=== PATIENT | female | born 1955 | race Caucasian/White ===

== ENCOUNTER 2017-11-07 21:39 | Emergency (ER) | payer MEDICARE, MEDICAID ==
[2017-11-07] MEDS ORDERED: Acetaminophen/HYDROcodone 325-5 MG Tab PO ONE (21:50)
--- NOTE | 2017-11-07 22:03 | EDM.PDOC ---
ED HPI GENERAL MEDICAL PROBLEM - General Stated Complaint: PAIN LT FOOT Time Seen by Provider: 11/07/17 21:39 Source of Information: Reports: Patient, Family History Limitations: Reports: Physical Impairment - History of Present Illness INITIAL COMMENTS - FREE TEXT/NARRATIVE: 62 y.o.w.f came with her partner to the ed due to right ankle pain. Pt had right ankle surgery on 09/08/2017, no new trauma, pt was seen at [facility] a few weeks ago for same. Pt has waling boot in place C/O ankle pain medial aspect. Pt is on a wheelchair most of the day. BP 127/78 pulse 90 temp 36.6 RR 20 Pulse ox 95% on RA. Onset: Today Onset Date: 11/04/17 Onset Time: 07:00 Duration: Day(s):, Intermittent Location: Reports: Lower Extremity, Right Quality: Reports: Ache, Burning, Same as Previous Episode Severity: Mild Improves with: Reports: Rest Worsens with: Reports: Movement Context: Reports: Other (s/p r ankle surgery) Associated Symptoms: Reports: No Other Symptoms Right Lower Leg Pain Score (Numeric/FACES): 9 - Related Data Allergies Allergy/AdvReac Type Severity Reaction Status Date / Time tetanus and diphtheria Allergy Hives Verified 08/29/17 18:21 toxoids [tetanus & diphtheria toxoids] Home Meds: Home Meds Amitriptyline [Elavil] 50 mg PO BEDTIME 05/04/15 [History] Clopidogrel [Plavix] 75 mg PO DAILY 05/04/15 [History] Potassium Chloride [Klor-Con M20] 10 meq PO BID 05/04/15 [History] fentaNYL [Fentanyl] 75 mcg TD Q72H 05/04/15 [History] levETIRAcetam [Keppra] 1,000 mg PO BID 05/04/15 [History] rOPINIRole [Requip] 2 mg PO BEDTIME 05/04/15 [History] Celecoxib [CeleBREX] 200 mg PO DAILY 05/30/15 [History] FLUoxetine [PROzac] 20 mg PO DAILY 05/30/15 [History] Acetaminophen [Tylenol] 975 mg PO ASDIRECTED PRN #60 06/03/15 [Rx] Furosemide [Lasix] 40 mg PO DAILY tablet 06/03/15 [Rx] Meclizine [Antivert] 25 mg PO TID PRN #30 06/07/15 [Rx] Terbinafine [LamISIL AT 1% Crm] 0 gm TOP BID tube 06/13/15 [Rx] Acetaminophen [Tylenol Arthritis] 1,300 mg PO BID 08/30/17 [History] Allopurinol [Zyloprim] 300 mg PO DAILY 08/30/17 [History] FLUoxetine HCl [Fluoxetine HCl] 40 mg PO DAILY 08/30/17 [History] Gabapentin [Neurontin] 800 mg PO TID 08/30/17 [History] Lisinopril 5 mg PO DAILY 08/30/17 [History] Mirtazapine 30 mg PO BEDTIME 08/30/17 [History] Multivitamin [Multivitamins] 1 each PO DAILY 08/30/17 [History] Pantoprazole [ProTONIX Granules] 40 mg PO 0600 08/30/17 [History] Pravastatin [Pravachol] 40 mg PO BEDTIME 08/30/17 [History] busPIRone HCl [Buspirone HCl] 7.5 mg PO BEDTIME 08/30/17 [History] traMADol [Ultram] 50 mg PO Q8H PRN 08/30/17 [History] Past Medical History HEENT History: Reports: None Cardiovascular History: Reports: Aneurysm, Hypertension, SOB on Exertion Other Cardiovascular History: has had many stroked, L sided weakness Respiratory History: Reports: SOB Gastrointestinal History: Reports: Hemorrhoids Genitourinary History: Reports: None 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 History: Musculoskeletal History: Reports: Arthritis, Fracture Neurological History: Reports: CVA, Seizure Other Neuro History: has had numerous cva'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, L sided weakness arm and leg Psychiatric History: Reports: Anxiety, Depression, Eating Disorders, Emotional Problems, Panic Attack Endocrine/Metabolic History: Reports: Obesity/BMI 30+ Hematologic History: Reports: None Immunologic History: Reports: None Oncologic (Cancer) History: Reports: None Dermatologic History: Reports: None Other Dermatologic History: left groin area is bright red in fold areas - Infectious Disease History Infectious Disease History: Reports: Chicken Pox, Measles, Mumps - Past Surgical History Head Surgeries/Procedures: Reports: None HEENT Surgical History: Reports: Adenoidectomy, Oral Surgery, Tonsillectomy, Other (See Below) Other HEENT Surgeries/Procedures: all of teeth pulled Cardiovascular Surgical History: Reports: None Respiratory Surgical History: Reports: None GI Surgical History: Reports: EGD Female Surgical History: Reports: None Endocrine Surgical History: Reports: None Neurological Surgical History: Reports: None Other Musculoskeletal Surgeries/Procedures:: very weak, has right ankle fx and 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 Oncologic Surgical History: Reports: None Dermatological Surgical History: Reports: None Social & Family History - Family History Family Medical History: Noncontributory - Tobacco Use Smoking Status *Q: Former Smoker Years of Tobacco use: 30 Packs/Tins Daily: 3 Used Tobacco, but Quit: Yes Month Tobacco Last Used: oct Second Hand Smoke Exposure: No - Caffeine Use Caffeine Use: Reports: Soda - Alcohol Use Days Per Week of Alcohol Use: 0 - Recreational Drug Use Recreational Drug Use: No Drug Use in Last 12 Months: No - Living Situation & Occupation Living situation: Reports: Single Occupation: Unemployed Review of Systems - Review of Systems Review Of Systems: See Below Constitutional: Reports: No Symptoms Eyes: Reports: No Symptoms Ears: Reports: No Symptoms Nose: Reports: No Symptoms Mouth/Throat: Reports: No Symptoms Respiratory: Reports: No Symptoms Cardiovascular: Reports: No Symptoms GI/Abdominal: Reports: No Symptoms Genitourinary: Reports: No Symptoms Musculoskeletal: Reports: Joint Pain (right ankle) Skin: Reports: No Symptoms Neurological: Reports: No Symptoms Psychiatric: Reports: No Symptoms ED EXAM, GENERAL - Physical Exam Exam: See Below Exam Limited By: Physical Impairment General Appearance: Alert, WD/WN, Obese (morbid) Eye Exam: Bilateral Eye: Normal Inspection Ears: Normal External Exam, Normal Canal Ear Exam: Bilateral Ear: Auricle Normal Nose: Normal Inspection, Normal Mucosa, No Blood Throat/Mouth: Normal Inspection, Normal Lips Head: Atraumatic, Normocephalic Neck: Normal Inspection, Supple, Non-Tender Respiratory/Chest: No Respiratory Distress, Lungs Clear, Normal Breath Sounds Cardiovascular: Normal Peripheral Pulses, Regular Rate, Rhythm, No Edema GI/Abdominal: Normal Bowel Sounds, Soft, Non-Tender (Female) Exam: Deferred Rectal (Female) Exam: Deferred Back Exam: Normal Inspection, Full Range of Motion Extremities: Normal Capillary Refill, Pedal Edema (chronic leg edema), Redness ( chronic for several months, no change), Other (well healing surgical scar) Neurological: Alert, Oriented, CN II-XII Intact, Normal Cognition Psychiatric: Normal Affect, Normal Mood Skin Exam: Warm, Dry, Intact, Normal Color, Rash (both lower legs, chronic, no worsening for 5 months) Course - Vital Signs Text/Narrative:: 62 y.o.w.f came with her partner to the ed due to right ankle pain. Pt had right ankle surgery on 09/08/2017, no new trauma, pt was seen at [facility] a few weeks ago for same. Pt has waling boot in place C/O ankle pain medial aspect. Pt is on a wheelchair most of the day. BP 127/78 pulse 90 temp 36.6 RR 20 Pulse ox 95% on RA. PE: Morbid obese female with left ankle discomfort 3 months after surgery. Imaging: right ankle: NAD, identical image picture from a few weeks ago Impression: Right ankle sprain Tx: Vicodin, Ice. Pt was requesting a new Walking Boot (self pay?), EDWIGE wrap was applied. Reexam:improved, pt requested to be d/c'd Plan: D/C with instructions Last Recorded V/S: Last Vital Signs Temp 36.6 C 11/07/17 22:05 Pulse 90 11/07/17 22:05 Resp 20 11/07/17 22:05 BP 122/73 11/07/17 22:05 Pulse Ox 95 11/07/17 22:05 - Orders/Labs/Meds Orders: Active Orders 24 hr Category Date Time Status Cooling Warming Measures [RC] ASDIRECTED Care 11/07/17 21:50 Active Ankle 2V Rt [CR] Stat Exams 11/07/17 21:51 Taken Ice Bag [Ice Therapy] [OM.PC] Routine Oth 11/07/17 21:50 Ordered Meds: Medications Discontinued Medications Generic Name Dose Route Start Last Admin Trade Name Freq PRN Reason Stop Dose Admin Hydrocodone Bitart/Acetaminophen 1 tab 11/07/17 21:50 11/07/17 22:12 [place] 325-5 Mg PO 11/07/17 21:51 1 tab ONETIME ONE Administration Departure - Departure Time of Disposition: 23:09 Disposition: Home, Self-Care 01 Condition: Good Clinical Impression: Right ankle sprain Qualifiers: Encounter type: subsequent encounter Involved ligament of ankle: unspecified ligament Qualified Code(s): S93.401D - Sprain of unspecified ligament of right ankle, subsequent encounter - Discharge Information Instructions: Ankle Sprain, [id number] Referrals: Cherie Maurice NP [Primary Care Provider] - Forms: ED Department Discharge Additional Instructions: Please f/u with your PMD/Ortho this week, rest, ice and elevation, please come back if your symptoms get worse acutely - My Orders Last 24 Hours: My Active Orders 11/07/17 21:50 Cooling Warming Measures [RC] ASDIRECTED Ice Bag [Ice Therapy] [OM.PC] Routine 11/07/17 21:51 Ankle 2V Rt [CR] Stat - Assessment/Plan Last 24 Hours: My Active Orders 11/07/17 21:50 Cooling Warming Measures [RC] ASDIRECTED Ice Bag [Ice Therapy] [OM.PC] Routine 11/07/17 21:51 Ankle 2V Rt [CR] Stat
[2017-11-07 22:08] VITALS: BP 122/73
--- NOTE | 2017-11-08 12:07 | CR ---
INDICATION: Pain after surgery. Surgery in August. RIGHT ANKLE: Frontal and lateral views of the right ankle, 11/07/2017, were compared with 10/26/2017, again revealing ORIF with plate and 6 screws fixing fibular fracture fragments in place and pin and screw fixing medial malleolar fracture fragments in place, unchanged in position or alignment compared with the previous study, with no definite complicating process identified. The ankle mortise appears to be satisfactory. IMPRESSION: Satisfactory appearance post ORIF. If occult bony abnormality is suspected clinically, re-examination and/or nuclear bone imaging with 3-phase technique may be helpful. NANDO
== END 2017-11-07 23:20 | disposition home or self-care (01) ==
LOC: FB.ED 21:39
DX: S93.401D Sprain of unspecified ligament of right ankle, subsequent encounter (principal); I10 Essential (primary) hypertension; E66.9 Obesity, unspecified; F32.9 Major depressive disorder, single episode, unspecified; Z87.891 Personal history of nicotine dependence; X58.XXXD Exposure to other specified factors, subsequent encounter; Z88.7 Allergy status to serum and vaccine; Z79.899 Other long term (current) drug therapy
CPT/HCPCS: 73600; 99283; A9270

== ENCOUNTER 2017-11-11 13:51 | Emergency (ER) | payer MEDICARE, MEDICAID ==
--- NOTE | 2017-11-11 14:16 | EDM.PDOC ---
ED HPI GENERAL MEDICAL PROBLEM - General Chief Complaint: General Stated Complaint: EVUALTION Time Seen by Provider: 11/11/17 13:51 Source of Information: Reports: Patient, EMS, Family History Limitations: Reports: Physical Impairment - History of Present Illness INITIAL COMMENTS - FREE TEXT/NARRATIVE: 62 y.o.w.f with metabolic syndrome, multiple medical issues, came to the ed because her family can not take care of her anymore at home and is requesting to be admitted to the correction. Pt's healthcare representative charlene arrange this this week. Pt was requesting to be admitted to the Hospital for 3 days and then go the the correction. Pt does not have any acute medical issues and she may not be qualified for admission. BP 105/59 RR 22 Temp 36.6 Pulse ox 95% on RA pulse 87 Onset Date: 11/03/17 Onset Time: 08:00 Duration: Constant, Getting Worse, Intermittent, Waxing/Waning Location: Reports: Generalized Quality: Reports: Same as Previous Episode Severity: Mild Right Feet Pain Score (Numeric/FACES): 5 - Related Data Allergies Allergy/AdvReac Type Severity Reaction Status Date / Time tetanus and diphtheria Allergy Hives Verified 11/11/17 14:07 toxoids [tetanus & diphtheria toxoids] Home Meds: Home Meds Amitriptyline [Elavil] 50 mg PO BEDTIME 05/04/15 [History] Clopidogrel [Plavix] 75 mg PO DAILY 05/04/15 [History] Potassium Chloride [Klor-Con M20] 10 meq PO BID 05/04/15 [History] fentaNYL [Fentanyl] 75 mcg TD Q72H 05/04/15 [History] levETIRAcetam [Keppra] 1,000 mg PO BID 05/04/15 [History] rOPINIRole [Requip] 2 mg PO BEDTIME 05/04/15 [History] Celecoxib [CeleBREX] 200 mg PO DAILY 05/30/15 [History] FLUoxetine [PROzac] 20 mg PO DAILY 05/30/15 [History] Acetaminophen [Tylenol] 975 mg PO ASDIRECTED PRN #60 06/03/15 [Rx] Furosemide [Lasix] 40 mg PO DAILY tablet 06/03/15 [Rx] Meclizine [Antivert] 25 mg PO TID PRN #30 06/07/15 [Rx] Terbinafine [LamISIL AT 1% Crm] 0 gm TOP BID tube 06/13/15 [Rx] Acetaminophen [Tylenol Arthritis] 1,300 mg PO BID 08/30/17 [History] Allopurinol [Zyloprim] 300 mg PO DAILY 08/30/17 [History] FLUoxetine HCl [Fluoxetine HCl] 40 mg PO DAILY 08/30/17 [History] Gabapentin [Neurontin] 800 mg PO TID 08/30/17 [History] Lisinopril 5 mg PO DAILY 08/30/17 [History] Mirtazapine 30 mg PO BEDTIME 08/30/17 [History] Multivitamin [Multivitamins] 1 each PO DAILY 08/30/17 [History] Pantoprazole [ProTONIX Granules] 40 mg PO 0600 08/30/17 [History] Pravastatin [Pravachol] 40 mg PO BEDTIME 08/30/17 [History] busPIRone HCl [Buspirone HCl] 7.5 mg PO BEDTIME 08/30/17 [History] traMADol [Ultram] 50 mg PO Q8H PRN 08/30/17 [History] Past Medical History HEENT History: Reports: None Cardiovascular History: Reports: Aneurysm, Hypertension, SOB on Exertion Other Cardiovascular History: has had many stroked, L sided weakness Respiratory History: Reports: SOB Gastrointestinal History: Reports: Hemorrhoids Genitourinary History: Reports: None 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 History: Musculoskeletal History: Reports: Arthritis, Fracture Neurological History: Reports: CVA, Seizure Other Neuro History: has had numerous cva's in pasr, L sided weakness arm and leg Psychiatric History: Reports: Anxiety, Depression, Eating Disorders, Emotional Problems, Panic Attack Endocrine/Metabolic History: Reports: Obesity/BMI 30+ Hematologic History: Reports: None Immunologic History: Reports: None Oncologic (Cancer) History: Reports: None Dermatologic History: Reports: None Other Dermatologic History: left groin area is bright red in fold areas - Infectious Disease History Infectious Disease History: Reports: Chicken Pox, Measles, Mumps - Past Surgical History Head Surgeries/Procedures: Reports: None HEENT Surgical History: Reports: Adenoidectomy, Oral Surgery, Tonsillectomy, Other (See Below) Other HEENT Surgeries/Procedures: all of teeth pulled Cardiovascular Surgical History: Reports: None Respiratory Surgical History: Reports: None GI Surgical History: Reports: EGD Female Surgical History: Reports: None Endocrine Surgical History: Reports: None Neurological Surgical History: Reports: None Other Musculoskeletal Surgeries/Procedures:: very weak, has right ankle fx and 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 Oncologic Surgical History: Reports: None Dermatological Surgical History: Reports: None Social & Family History - Family History Family Medical History: Noncontributory - Tobacco Use Smoking Status *Q: Former Smoker Years of Tobacco use: 30 Packs/Tins Daily: 3 Used Tobacco, but Quit: Yes Month Tobacco Last Used: jul Second Hand Smoke Exposure: No - Caffeine Use Caffeine Use: Reports: Soda - Alcohol Use Days Per Week of Alcohol Use: 0 - Recreational Drug Use Recreational Drug Use: No Drug Use in Last 12 Months: No - Living Situation & Occupation Living situation: Reports: Single Occupation: Unemployed ED ROS GENERAL - Review of Systems Review Of Systems: Unable To Obtain ED EXAM, GENERAL - Physical Exam Exam: See Below Exam Limited By: Physical Impairment General Appearance: Alert, Obese (morbid obese) Eye Exam: Bilateral Eye: Normal Inspection Ears: Normal External Exam Ear Exam: Bilateral Ear: Auricle Normal Nose: Normal Inspection Throat/Mouth: Normal Inspection, Normal Lips Head: Atraumatic, Normocephalic Neck: Normal Inspection, Supple, Non-Tender Respiratory/Chest: Chest Non-Tender, Wheezing, Prolonged Expiration Cardiovascular: Normal Peripheral Pulses, Regular Rate, Rhythm Peripheral Pulses: 1+: Brachial (R) GI/Abdominal: Normal Bowel Sounds, Soft, Non-Tender, No Organomegaly (Female) Exam: Deferred Rectal (Female) Exam: Deferred Back Exam: Normal Inspection, Full Range of Motion Extremities: Normal Range of Motion, Pedal Edema (chronic) Neurological: Alert, Oriented, CN II-XII Intact, Normal Cognition, Abnormal Gait (due to bodyhabitus) Psychiatric: Normal Affect, Depressed Mood Skin Exam: Warm, Dry, Erythema (lower ext. chronic) Lymphatic: No Adenopathy Course - Vital Signs Text/Narrative:: 62 y.o.w.f with metabolic syndrome, multiple medical issues, including Asthma, came to the ed because her family can not take care of her anymore at home and is requesting to be admitted to the correction. Pt's healthcare representative charlene arrange this this week. Pt was requesting to be admitted to the Hospital for 3 days and then go the the correction. Pt does not have any acute medical issues and she may not be qualified for admission. BP 105/59 RR 22 Temp 36.6 Pulse ox 95% on RA pulse 87 PE: Morbid obese w f NAD, exp wheezeswalking with a boot. Labs: CBC nl BMP nl but showed a Cr. of 1.1 and a BNP of 1145 (baseline) Impression: Morbid obesity, Metabolic syndrome, S/P R ankle injury (walking boot ) Tx: Flo Reexam: Improved Plan: D/C home with recommendations Last Recorded V/S: Last Vital Signs Temp 36.6 C 11/11/17 14:00 Pulse 78 11/11/17 15:45 Resp 18 11/11/17 15:45 BP 104/65 11/11/17 15:45 Pulse Ox 97 11/11/17 15:45 - Orders/Labs/Meds Labs: Laboratory Tests 11/11/17 11/11/17 11/11/17 Range/Units 14:30 14:50 14:50 WBC 7.3 (4.5-12.0) X10-3/uL RBC 3.90 (3.23-5.20) x10(6)uL Hgb 11.7 (11.5-15.5) g/dL Hct 35.7 (30.0-51.3) % MCV 91.5 (80-96) fL MCH 29.9 (27.7-33.6) pg MCHC 32.7 (32.2-35.4) g/dL RDW 15.0 (11.5-15.5) % Plt Count 236 (125-369) X10(3)uL MPV 9.5 (7.4-10.4) fL Add Manual Diff Yes Neutrophils % (Manual) 69 (46-82) % Band Neutrophils % 3 (0-6) % Lymphocytes % (Manual) 20 (13-37) % Monocytes % (Manual) 5 (4-12) % Eosinophils % (Manual) 3 (0-5) % Sodium 143 (135-145) mmol/L Potassium 4.2 (3.5-5.3) mmol/L Chloride 106 (100-110) mmol/L Carbon Dioxide 27 (21-32) mmol/L BUN 14 (7-18) mg/dL Creatinine 1.1 H (0.55-1.02) mg/dL Est Cr Clr Drug Dosing TNP Estimated GFR (MDRD) 50 L (>60) BUN/Creatinine Ratio 12.7 (9-20) Glucose 100 (80-116) mg/dL Calcium 9.5 (8.6-10.2) mg/dL Creatine Kinase 49 L (60-160) IU/L NT-Pro-B Natriuret Pep (<=125) pg/mL Urine Color Yellow (YELLOW) Urine Appearance Clear (CLEAR) Urine pH 6.0 (5.0-6.5) Ur Specific Ivins 1.015 (1.010-1.025) Urine Protein Negative (NEGATIVE) mg/dL Urine Glucose (UA) Normal (NEGATIVE) mg/dL Urine Ketones Negative (NEGATIVE) mg/dL Urine Occult Blood Negative (NEGATIVE) Urine Nitrite Negative (NEGATIVE) Urine Bilirubin Negative (NEGATIVE) Urine Urobilinogen Normal (NEGATIVE) mg/dL Ur Leukocyte Esterase Negative (NEGATIVE) Urine RBC 0-5 (0) Urine WBC 0-5 (0) Ur Squamous Epith Cells Few H (NS,R,O) Urine Bacteria Few H (NS) 11/11/17 Range/Units 14:50 WBC (4.5-12.0) X10-3/uL RBC (3.23-5.20) x10(6)uL Hgb (11.5-15.5) g/dL Hct (30.0-51.3) % MCV (80-96) fL MCH (27.7-33.6) pg MCHC (32.2-35.4) g/dL RDW (11.5-15.5) % Plt Count (125-369) X10(3)uL MPV (7.4-10.4) fL Add Manual Diff Neutrophils % (Manual) (46-82) % Band Neutrophils % (0-6) % Lymphocytes % (Manual) (13-37) % Monocytes % (Manual) (4-12) % Eosinophils % (Manual) (0-5) % Sodium (135-145) mmol/L Potassium (3.5-5.3) mmol/L Chloride (100-110) mmol/L Carbon Dioxide (21-32) mmol/L BUN (7-18) mg/dL Creatinine (0.55-1.02) mg/dL Est Cr Clr Drug Dosing Estimated GFR (MDRD) (>60) BUN/Creatinine Ratio (9-20) Glucose (80-116) mg/dL Calcium (8.6-10.2) mg/dL Creatine Kinase (60-160) IU/L NT-Pro-B Natriuret Pep 1164 H* (<=125) pg/mL Urine Color (YELLOW) Urine Appearance (CLEAR) Urine pH (5.0-6.5) Ur Specific Ivins (1.010-1.025) Urine Protein (NEGATIVE) mg/dL Urine Glucose (UA) (NEGATIVE) mg/dL Urine Ketones (NEGATIVE) mg/dL Urine Occult Blood (NEGATIVE) Urine Nitrite (NEGATIVE) Urine Bilirubin (NEGATIVE) Urine Urobilinogen (NEGATIVE) mg/dL Ur Leukocyte Esterase (NEGATIVE) Urine RBC (0) Urine WBC (0) Ur Squamous Epith Cells (NS,R,O) Urine Bacteria (NS) Meds: Medications Discontinued Medications Generic Name Dose Route Start Last Admin Trade Name Freq PRN Reason Stop Dose Admin Albuterol/Ipratropium 3 ml 11/11/17 14:11 11/11/17 14:36 Duoneb 3.0-0.5 Mg/3 Ml NEB 11/11/17 14:12 3 ml ONETIME ONE Administration Departure - Departure Time of Disposition: 16:10 Disposition: Home, Self-Care 01 Condition: Good Clinical Impression: Morbid obesity Asthma Qualifiers: Asthma severity: mild Asthma persistence: intermittent Asthma complication type : uncomplicated Qualified Code(s): J45.20 - Mild intermittent asthma, uncomplicated Ankle injury Qualifiers: Encounter type: subsequent encounter Laterality: right Qualified Code(s): S99.911D - Unspecified injury of right ankle, subsequent encounter - Discharge Information Referrals: Cherie Maurice NP [Primary Care Provider] - Forms: ED Department Discharge Additional Instructions: Please cont your current meds, please f/u as recommended, please come back to the ed if your symptoms get worse acutely.
[2017-11-11] MEDS: Albuterol/Ipratropium 3.0-0.5 MG/3 ML Neb Soln NEB ONE (14:36)
[2017-11-11 17:07] VITALS: BP 104/65
--- NOTE | 2017-11-12 09:19 | CR ---
INDICATION: Short of breath. CHEST: A portable AP upright view of the chest 11/11/2017 was compared with , and 05/04/2015, revealing evidence of exogenous obesity. The heart appears somewhat enlarged, but is emphasized by the AP positioning. The aorta is tortuous with calcification in the arch. Lungs appear to be slightly hyperaerated, but this is also emphasized by the patient's body habitus. A definite active infiltrate or effusion was not identified. IMPRESSION: 1. No definite acute process. 2. Probable ASHD. Heart at the upper limits of normal size or slightly enlarged. 3. Exogenous obesity. MTDD
== END 2017-11-11 16:15 | disposition home or self-care (01) ==
LOC: FB.ED 13:51
DX: J45.20 Mild intermittent asthma, uncomplicated (principal); E88.81 Metabolic syndrome and other insulin resistance; E66.01 Morbid (severe) obesity due to excess calories; S99.911D Unspecified injury of right ankle, subsequent encounter; Z88.7 Allergy status to serum and vaccine; Z79.899 Other long term (current) drug therapy; I10 Essential (primary) hypertension; Z87.891 Personal history of nicotine dependence; X58.XXXD Exposure to other specified factors, subsequent encounter; R06.2 Wheezing
CPT/HCPCS: 36415; 71045; 80048; 81001; 82550; 83880; 85025; 94640; 99283; 99285; J7620

== ENCOUNTER 2017-12-28 18:05 | Emergency (ER) | payer MEDICARE, MEDICAID ==
--- NOTE | 2017-12-28 18:25 | EDM.PDOC ---
ED HPI GENERAL MEDICAL PROBLEM - General Chief Complaint: Lower Extremity Injury/Pain Stated Complaint: HURT LT KNEE Time Seen by Provider: 12/28/17 18:24 Source of Information: Reports: Patient History Limitations: Reports: No Limitations - History of Present Illness INITIAL COMMENTS - FREE TEXT/NARRATIVE: Fior comes into [facility] ED with L knee pain that occurred yesterday indoors while walking with her walker. She heard a "pop" from the anterior L knee, followed by some pain that was sharp and now aching. She was able to sit down, took some Tylenol, and has been cautious with the knee today. There is a PMH of CVA with weakened L side, and she is recovering from a R ankle ORIF. Left Knee Pain Score (Numeric/FACES): 6 - Related Data Allergies Allergy/AdvReac Type Severity Reaction Status Date / Time tetanus and diphtheria Allergy Hives Verified 12/28/17 18:07 toxoids [tetanus & diphtheria toxoids] Home Meds: Home Meds Amitriptyline [Elavil] 50 mg PO BEDTIME 05/04/15 [History] Clopidogrel [Plavix] 75 mg PO DAILY 05/04/15 [History] Potassium Chloride [Klor-Con M20] 10 meq PO BID 05/04/15 [History] fentaNYL [Fentanyl] 75 mcg TD Q72H 05/04/15 [History] levETIRAcetam [Keppra] 1,000 mg PO BID 05/04/15 [History] rOPINIRole [Requip] 2 mg PO BEDTIME 05/04/15 [History] Celecoxib [CeleBREX] 200 mg PO DAILY 05/30/15 [History] FLUoxetine [PROzac] 20 mg PO DAILY 05/30/15 [History] Acetaminophen [Tylenol] 975 mg PO ASDIRECTED PRN #60 06/03/15 [Rx] Furosemide [Lasix] 40 mg PO DAILY tablet 06/03/15 [Rx] Meclizine [Antivert] 25 mg PO TID PRN #30 06/07/15 [Rx] Terbinafine [LamISIL AT 1% Crm] 0 gm TOP BID tube 06/13/15 [Rx] Acetaminophen [Tylenol Arthritis] 1,300 mg PO BID 08/30/17 [History] Allopurinol [Zyloprim] 300 mg PO DAILY 08/30/17 [History] FLUoxetine HCl [Fluoxetine HCl] 40 mg PO DAILY 08/30/17 [History] Gabapentin [Neurontin] 800 mg PO TID 08/30/17 [History] Lisinopril 5 mg PO DAILY 08/30/17 [History] Mirtazapine 30 mg PO BEDTIME 08/30/17 [History] Multivitamin [Multivitamins] 1 each PO DAILY 08/30/17 [History] Pantoprazole [ProTONIX Granules] 40 mg PO 0600 08/30/17 [History] Pravastatin [Pravachol] 40 mg PO BEDTIME 08/30/17 [History] busPIRone HCl [Buspirone HCl] 7.5 mg PO BEDTIME 08/30/17 [History] traMADol [Ultram] 50 mg PO Q8H PRN 08/30/17 [History] Past Medical History HEENT History: Reports: None Cardiovascular History: Reports: Aneurysm, Hypertension, SOB on Exertion, Other (See Below) Other Cardiovascular History: has had many stroked, L sided weakness Respiratory History: Reports: SOB Gastrointestinal History: Reports: Hemorrhoids Genitourinary History: Reports: None [employer] History: Reports: , Other (See Below) Other OB/BYN History: Musculoskeletal History: Reports: Arthritis, Fracture Neurological History: Reports: CVA, Seizure, Other (See Below) Other Neuro History: has had numerous cva's in pasr, L sided weakness arm and leg Psychiatric History: Reports: Anxiety, Depression, Eating Disorders, Emotional Problems, Panic Attack Endocrine/Metabolic History: Reports: Obesity/BMI 30+ Hematologic History: Reports: None Immunologic History: Reports: None Oncologic (Cancer) History: Reports: None Dermatologic History: Reports: None, Other (See Below) Other Dermatologic History: left groin area is bright red in fold areas - Infectious Disease History Infectious Disease History: Reports: Chicken Pox, Measles, Mumps - Past Surgical History Head Surgeries/Procedures: Reports: None HEENT Surgical History: Reports: Adenoidectomy, Oral Surgery, Tonsillectomy, Other (See Below) Other HEENT Surgeries/Procedures: all of teeth pulled Cardiovascular Surgical History: Reports: None Respiratory Surgical History: Reports: None GI Surgical History: Reports: EGD Female Surgical History: Reports: None Endocrine Surgical History: Reports: None Neurological Surgical History: Reports: None Musculoskeletal Surgical History: Reports: Other (See Below) Other Musculoskeletal Surgeries/Procedures:: very weak, has right ankle fx and 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 Oncologic Surgical History: Reports: None Dermatological Surgical History: Reports: None Social & Family History - Family History Family Medical History: Noncontributory - Tobacco Use Smoking Status *Q: Former Smoker Years of Tobacco use: 30 Packs/Tins Daily: 3 Used Tobacco, but Quit: Yes Month/Year Tobacco Last Used: quit 6 years ago Second Hand Smoke Exposure: No - Caffeine Use Caffeine Use: Reports: Soda - Alcohol Use Days Per Week of Alcohol Use: 0 - Recreational Drug Use Recreational Drug Use: No Drug Use in Last 12 Months: No - Living Situation & Occupation Living situation: Reports: Single Occupation: Unemployed Review of Systems - Review of Systems Review Of Systems: ROS reveals no pertinent complaints other than HPI. ED EXAM, GENERAL - Physical Exam Exam: See Below Exam Limited By: No Limitations General Appearance: Alert, WD/WN, No Apparent Distress, Obese Head: Atraumatic, Normocephalic Neck: Normal Inspection, Supple, Non-Tender, Full Range of Motion Respiratory/Chest: Lungs Clear, Normal Breath Sounds Cardiovascular: Normal Peripheral Pulses, Regular Rate, Rhythm, Other (brawny edema both LE) Back Exam: Normal Inspection Extremities: Leg Pain (L knee: limited tenderness of lateral margin of patella, mild crepitus to maneuver; no joint effusion, no gross laxity to maneuver) Neurological: Alert, Oriented, CN II-XII Intact, No Motor/Sensory Deficits Psychiatric: Normal Affect, Normal Mood Skin Exam: Warm, Dry, Intact Lymphatic: No Adenopathy Course - Vital Signs Text/Narrative:: I reviewed x rays of L knee, noting some patellar subluxation and DJDs. No fx or debris was detected. Last Recorded V/S: Last Vital Signs Temp 36.7 C 12/28/17 18:08 Pulse 92 12/28/17 18:08 Resp 18 12/28/17 18:08 BP 144/81 H 12/28/17 18:08 Pulse Ox 94 L 12/28/17 18:08 - Orders/Labs/Meds Orders: Active Orders 24 hr Category Date Time Status Knee 1V or 2V Lt [CR] Stat Exams 12/28/17 18:17 Ordered Labs: Laboratory Tests 12/28/17 Range/Units 18:44 Urine Color Yellow (YELLOW) Urine Appearance Clear (CLEAR) Urine pH 7.0 H (5.0-6.5) Ur Specific Mobile 1.010 (1.010-1.025) Urine Protein Negative (NEGATIVE) mg/dL Urine Glucose (UA) Normal (NEGATIVE) mg/dL Urine Ketones Negative (NEGATIVE) mg/dL Urine Occult Blood Negative (NEGATIVE) Urine Nitrite Negative (NEGATIVE) Urine Bilirubin Negative (NEGATIVE) Urine Urobilinogen Normal (NEGATIVE) mg/dL Ur Leukocyte Esterase Negative (NEGATIVE) Urine RBC Not seen (0) Urine WBC 0-5 (0) Ur Squamous Epith Cells Few H (NS,R,O) Urine Bacteria Few H (NS) Departure - Departure Time of Disposition: 19:03 Disposition: Home, Self-Care 01 Condition: Fair Clinical Impression: Patellar disorder Qualifiers: Laterality: left Qualified Code(s): M22.92 - Unspecified disorder of patella, left knee - Discharge Information Referrals: Cherie Maurice NP [Primary Care Provider] - Forms: ED Department Discharge - Problem List & Annotations (1) Patellar disorder SNOMED Code(s): 316378064 Code(s): M22.90 - UNSPECIFIED DISORDER OF PATELLA, UNSPECIFIED KNEE Status : Acute Current Visit: Yes Annotation/Comment:: Patellar subluxation, managed with Tylenol, walker for support, activity as tolerated. Qualifiers: Laterality: left Qualified Code(s): M22.92 - Unspecified disorder of patella, left knee - Problem List Review Problem List Initiated/Reviewed/Updated: Yes - My Orders Last 24 Hours: My Active Orders 12/28/17 18:17 Knee 1V or 2V Lt [CR] Stat - Assessment/Plan Last 24 Hours: My Active Orders 12/28/17 18:17 Knee 1V or 2V Lt [CR] Stat Plan: Follow up with PCP if needed.
[2017-12-28 19:12] VITALS: BP 131/77
--- NOTE | 2017-12-29 09:26 | CR ---
INDICATION: Anterior pain yesterday with pop. Suspect transient patellar subluxation. LEFT KNEE: Frontal and lateral views of the left knee were obtained. The patella appears to be somewhat subluxed laterally. Hypertrophic degenerative changes are noted medially off the tibia, medially and laterally off the intercondylar spines, and at the intercondylar notch to a minimal degree also. Moderate hypertrophic changes are also noted off the lateral aspects of the femur and tibia. Joint spaces appear to be fairly well maintained. However, this is probably not an upright view and would therefore be inaccurate in that regard. A definite fracture was not identified. IMPRESSION: 1. There appears to be subluxation of the patella laterally - correlate clinically. 2. Osteoarthritis. MTDD
== END 2017-12-28 19:15 | disposition home or self-care (01) ==
LOC: FB.ED 18:05
DX: M22.92 Unspecified disorder of patella, left knee (principal); E66.9 Obesity, unspecified; Z88.7 Allergy status to serum and vaccine; Z79.899 Other long term (current) drug therapy; Z87.891 Personal history of nicotine dependence
CPT/HCPCS: 73560-LT; 81001; 99283; 99284

== ENCOUNTER 2018-03-04 01:06 | Observation (INO) | payer MEDICARE, MEDICAID ==
[2018-03-04] MEDS ORDERED: Albuterol/Ipratropium 3.0-0.5 MG/3 ML Neb Soln NEB PRN (02:22)
[2018-03-04] MEDS ORDERED: Morphine 2 MG/ML Syringe IVPUSH PRN (02:22)
[2018-03-04] MEDS ORDERED: Aspirin 325 MG Tab.EC PO ONE (02:30)
[2018-03-04] MEDS ORDERED: Aspirin 81 MG Tab.EC PO ONE (02:31)
[2018-03-04] MEDS ORDERED: Clopidogrel 75 MG Tab PO ONE ×2 (02:32)
[2018-03-04] MEDS ORDERED: Aspirin 81 MG Tab.Chew PO ONE (02:36)
[2018-03-04] MEDS ORDERED: Enoxaparin 40 MG/0.4 ML Syringe SUBCUT SCH (02:45)
--- NOTE | 2018-03-04 03:39 | ER ---
DATE SEEN: 03/04/2018 CHIEF COMPLAINT: Chest pain. HISTORY OF PRESENT ILLNESS: This is a 62-year-old female, who came in with pain in the chest, left side, going to the jaw. It has been there for 2 days. However, by the time she arrived, she stated the chest pain had resolved. There has been shortness of breath, but that is chronic. Denies fever or cough. Pain moderate to severe in intensity. PAST MEDICAL HISTORY: Morbid obesity, history of cerebrovascular accident, history of bimalleolar fracture of the right ankle. CURRENT MEDICATIONS: Please see the nurse's notes and the electronic record. ALLERGIES: Tdap. PHYSICAL EXAMINATION: GENERAL: Not in any cardiopulmonary distress. VITAL SIGNS: Blood pressure 141/76, pulse 84, temperature 98.4, oxygenation 96%. ENT: Negative. NECK: Trachea is midline. CHEST: End-expiratory rhonchi occasionally. CARDIOVASCULAR: Normal. EXTREMITIES: Nonpitting edema bilaterally. MENTAL STATUS: Alert. LABORATORY STUDIES: Normal white cell count. Creatinine is 1.1. Troponin is 0.096 with a BNP of 528. Chest x-ray was unremarkable. EKG, normal sinus rhythm. IMPRESSION: Chest pain. PLAN: Admit for further observation. The patient will get aspirin, Plavix x1 dose, and repeat troponin in the morning. /[id number] MUNDO/JAEL
[2018-03-04] MEDS ORDERED: Morphine 10 MG/ML Syringe IVPUSH PRN (07:16)
[2018-03-04 08:46] VITALS: BP 103/77
[2018-03-04] MEDS ORDERED: Heparin Sodium 5,000 Units/ML Vial IVPUSH ONE (09:23)
[2018-03-04] MEDS ORDERED: Heparin Sodium/0.45% NaCl 25,000 UNITS/500 ML BAG IV SCH (09:30)
[2018-03-04] MEDS: Sodium Chloride 0.9% 10 ML Syringe FLUSH PRN ×2 (10:00→10:15)
--- NOTE | 2018-03-04 11:28 | CR ---
INDICATION: Chest pain. CHEST: Portable AP upright view of the chest 03/04/2018 was compared with 11/11 and 09/03/2017, again revealing evidence of exogenous obesity, ASHD with cardiomegaly, with no definite acute abnormality identified. No evidence of CHF , infiltrate, or effusion was identified. Calcifications are suggested in the arch of the aorta. IMPRESSION: No acute process, fairly stable appearance of the chest - multiple findings as noted above. MTDD
--- NOTE | 2018-03-04 12:18 | DISCH ---
DISCHARGE/TRANSFER SUMMARY DATE SEEN: 03/04/2018 SUBJECTIVE: Fior Gonzales is a 62-year-old, female, admitted with acute chest pain about 2 in the morning. Chest pain had been for about 2 days duration. It was substernal, pressure discomfort, some radiation to the jaw, and no nausea. Observation only. When she presented to the emergency room under baster hours of 03/04/2018, pain has subsided. Examination was stable. EKG was fine, troponin was elevated at 0.096, normal is 0.056 or below. Laboratory studies were otherwise satisfactory without complicating issues. She was observed overnight. Chest pain resolved. She had been given one dose of Plavix and aspirin but no other intervention. Non-STEMI, was considered. PHYSICAL EXAMINATION: VITAL SIGNS: Stable. 36.5, 78, 103/77, 18, and 95. GENERAL: Appears comfortable, sitting. HEENT: Unremarkable. Funduscopic benign. Bright TMs. Clear nasal discharge. Mouth and oropharynx clear. Poor dentition. NECK: Benign. Thyroid small. No carotid bruits. CHEST: Clear in all lung penaloza. No adventitious sounds. HEART: Occasional ectopy. No significant murmur. ABDOMEN: Rotund, obese. EXTREMITIES: Perfused. Repeat troponin 0.25. ASSESSMENT: Non-STEMI, asymptomatic, at risk for further injury. INTERVENTION/PLAN: Discussed with Dr. King with Cardiology, [facility]. Agreed to accept in transfer. She was given IV bolus of heparin 4000 units, and 1000 units/hour continuous infusion. She will be kept n.p.o., transferred by ambulance accordingly. DISCHARGE STATUS: Stable. ADDENDUM: A 30-minute visit, discussion, management, and transfer to acute care stay, [facility], Cardiology. /[id number] EILEEN/WILIAN COLLIER
--- NOTE | 2018-03-04 17:35 | HP ---
ADMISSION DATE: 03/04/2018 HISTORY OF PRESENT ILLNESS: Fior Gonzales is a 62-year-old, female, admitted with acute chest pain. About 2 days' duration, Wednesday and , vague but persistent substernal pressure and discomfort. Came and went, but sedentary lifestyle, saw no complicating factors. She described no rapid heartbeat. Just chronic respiratory difficulty due to inactivity. No known history of coronary artery disease, has been in reasonable health. MEDICATIONS: Please see med recon list. ALLERGIES: Allergic to tetanus by report with abdifatah. PAST MEDICAL HISTORY: Significant for history of recurrent TIAs, stroke by report, left upper extremity, resolved without difficulty. She has had a previous bimalleolar ankle fracture with surgical repair with good outcome. No other major operative procedures. Chronic pain syndrome, mood disorder, seizure disorder, and complicated arthritis. SOCIAL HISTORY: . Lives with young family members. Three children, one daughter and two sons. Worked in [employer] and with [employer]. Quit smoking, three-quarter pack per day, in 2011. No alcohol consumption. No illicit drug use. FAMILY HISTORY: Dad of prostate cancer at 80. Mom, long term, some ongoing medical problems. One brother. No sister. No family historyof early heart disease, diabetes mellitus, or inheritable cancers. REVIEW OF SYSTEMS: CONSTITUTIONAL: Feeling well at this time. EYES: Sees well. EARS: Hears well. OROPHARYNX: Intact dentition. CARDIOVASCULAR: Please see HPI. RESPIRATORY: Please see HPI. GI: Regular predictable stools. No blood in the stools. : Voiding pattern normal. Mild stress incontinence. ORTHOPEDIC: Generalized joint complaints. SKIN: No new lesions or eruptions or moles. PSYCHIATRIC: Mood stable. Medications on board. PHYSICAL EXAMINATION: VITAL SIGNS: Stable. 121/82, 17, 91 on 1 L, and 36.6. GENERAL: Elderly, cooperative, and conversant. Speech was fluent. HEENT: Funduscopic benign. Bright TMs. Clear nasal discharge. Mouth and oropharynx clear. Good gag reflex. Tongue midline. NECK: Benign. Thyroid small. No carotid bruits. CHEST: Clear in all lung penaloza. No adventitious sounds. HEART: Regular without ectopy or murmur. BREASTS: Exam deferred. ABDOMEN: Benign. No surgical scars. No hepatosplenomegaly. Large pannus. PELVIC AND RECTAL: Deferred. EXTREMITIES: Well perfused. LABORATORY STUDIES: Reviewed. Troponin 0.096. Electrolytes, metabolic panel, and CBC unremarkable. EKG stable. Chest x-ray unremarkable. ASSESSMENT: [id number] myocardial infarction suspected. PLAN: Cardiology consultation will be obtained. Complementary care and well being, heparin during potential transfer. /[id number] EILEEN/WILIAN
[2018-03-05] MEDS ORDERED: Enoxaparin 40 MG/0.4 ML Syringe SUBCUT SCH (06:00)
== END 2018-03-04 10:50 ==
LOC: FB.ED 01:06 → FB.ICU 02:22
PROVIDERS: ADMIT Family Medicine; ATTEND Family Medicine
DX: I21.4 Non-ST elevation (NSTEMI) myocardial infarction (principal); G89.4 Chronic pain syndrome; G40.909 Epilepsy, unspecified, not intractable, without status epilepticus; M19.90 Unspecified osteoarthritis, unspecified site; F39 Unspecified mood [affective] disorder; E66.01 Morbid (severe) obesity due to excess calories; Z88.7 Allergy status to serum and vaccine; Z86.73 Personal history of transient ischemic attack (TIA), and cerebral infarction without residual deficits; Z87.891 Personal history of nicotine dependence
CPT/HCPCS: 36415; 71045; 80048; 80053; 83880; 84484; 85025; 85027; 85730; 93005; 99285; A9270; J1644; J1650; J7050; 96365; 96372; 99236; 99284; G0378

== ENCOUNTER 2018-06-08 16:52 | Inpatient (IN) | payer MEDICARE, MEDICAID ==
[2018-06-08] MEDS ORDERED: Furosemide 40 MG/4 ML VIAL IVPUSH ONE (17:10)
--- NOTE | 2018-06-08 17:17 | EDM.PDOC ---
ED HPI GENERAL MEDICAL PROBLEM - General Chief Complaint: Respiratory Problem Stated Complaint: shortness of breath Time Seen by Provider: 06/08/18 17:12 Source of Information: Reports: Patient, EMS History Limitations: Reports: No Limitations - History of Present Illness INITIAL COMMENTS - FREE TEXT/NARRATIVE: Patient presents by EMS from clinic with shortness of breath. Has been short of breath x 1 month, this was reason for clinic appt today. Patient became ashen and more short of breath at clinic after walking a few steps. Denies h/o HF or chronic lung dz. She did have an AMI 02/2018. Denies chest pain at this time. Patient also endorses 20 lb weight gain in 2 months. Onset: Gradual Duration: Week(s): (4) Severity: Moderate Worsens with: Reports: Other (exertion) - Related Data Allergies Allergy/AdvReac Type Severity Reaction Status Date / Time tetanus and diphtheria Allergy Hives Verified 06/08/18 17:03 toxoids [tetanus & diphtheria toxoids] Home Meds: Home Meds Amitriptyline [Elavil] 50 mg PO BEDTIME 05/04/15 [History] Potassium Chloride [Klor-Con M20] 10 meq PO BID 05/04/15 [History] levETIRAcetam [Keppra] 1,000 mg PO BID 05/04/15 [History] rOPINIRole [Requip] 2 mg PO BEDTIME 05/04/15 [History] FLUoxetine [PROzac] 20 mg PO DAILY 05/30/15 [History] Furosemide [Lasix] 40 mg PO DAILY tablet 06/03/15 [Rx] Allopurinol [Zyloprim] 300 mg PO DAILY 08/30/17 [History] FLUoxetine HCl [Fluoxetine HCl] 40 mg PO DAILY 08/30/17 [History] Gabapentin [Neurontin] 800 mg PO TID 08/30/17 [History] Lisinopril 5 mg PO DAILY 08/30/17 [History] Mirtazapine 30 mg PO BEDTIME 08/30/17 [History] Multivitamin [Multivitamins] 1 each PO DAILY 08/30/17 [History] Pantoprazole [ProTONIX Granules] 40 mg PO 0600 08/30/17 [History] busPIRone HCl [Buspirone HCl] 7.5 mg PO BEDTIME 08/30/17 [History] Albuterol [Ventolin HFA] 2 inhalation PO ASDIRECTED PRN 06/08/18 [History] Propranolol [Inderal LA] 80 mg DAILY 06/08/18 [History] Rosuvastatin [Crestor] 20 mg PO DAILY 06/08/18 [History] Ticagrelor [Brilinta] 90 mg BID 06/08/18 [History] Past Medical History HEENT History: Reports: None Cardiovascular History: Reports: Aneurysm, Hypertension, [place], SOB on Exertion, Other (See Below). Denies: Heart Failure Other Cardiovascular History: has had many stroked, L sided weakness Respiratory History: Reports: Pneumonia, Recurrent, SOB Gastrointestinal History: Reports: Chronic Constipation, Hemorrhoids Genitourinary History: Reports: None, UTI, Recurrent COLOR CHECKER ROVING OR YARN History: Reports: , Other (See Below) Other COLOR CHECKER ROVING OR YARN History: Musculoskeletal History: Reports: Arthritis, Fracture, Gout Other Musculoskeletal History: hx fx R foot Neurological History: Reports: CVA, Seizure, Other (See Below) Other Neuro History: has had numerous cva's in pasr, L sided weakness arm and leg Psychiatric History: Reports: Anxiety, Depression, Eating Disorders, Emotional Problems, Panic Attack Endocrine/Metabolic History: Reports: Obesity/BMI 30+ Hematologic History: Reports: None Immunologic History: Reports: None Oncologic (Cancer) History: Reports: None Dermatologic History: Reports: None, Other (See Below) Other Dermatologic History: left groin area is bright red in fold areas - Infectious Disease History Infectious Disease History: Reports: Chicken Pox, Measles, Mumps - Past Surgical History Head Surgeries/Procedures: Reports: None HEENT Surgical History: Reports: Adenoidectomy, Oral Surgery, Tonsillectomy, Other (See Below) Other HEENT Surgeries/Procedures: all of teeth pulled Cardiovascular Surgical History: Reports: None Respiratory Surgical History: Reports: None GI Surgical History: Reports: EGD Female Surgical History: Reports: None Endocrine Surgical History: Reports: None Neurological Surgical History: Reports: None Musculoskeletal Surgical History: Reports: Other (See Below) Other Musculoskeletal Surgeries/Procedures:: very weak, has right ankle fx and 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 Oncologic Surgical History: Reports: None Dermatological Surgical History: Reports: None Social & Family History - Family History Family Medical History: Noncontributory - Tobacco Use Tobacco Use Within Last Twelve Months: No - Caffeine Use Caffeine Use: Reports: Coffee - Living Situation & Occupation Living situation: Reports: Single Occupation: Unemployed ED ROS GENERAL - Review of Systems Review Of Systems: See Below Constitutional: Reports: No Symptoms HEENT: Reports: No Symptoms Respiratory: Reports: Shortness of Breath, Cough (today) Cardiovascular: Reports: Dyspnea on Exertion, Edema. Denies: Chest Pain Endocrine: Reports: No Symptoms GI/Abdominal: Reports: No Symptoms : Reports: No Symptoms Musculoskeletal: Reports: No Symptoms Skin: Reports: Other (was ashen at clinic today) Neurological: Reports: No Symptoms Psychiatric: Reports: No Symptoms Hematologic/Lymphatic: Reports: No Symptoms Immunologic: Reports: No Symptoms ED EXAM, GENERAL - Physical Exam Exam: See Below Exam Limited By: No Limitations General Appearance: Alert, WD/WN, No Apparent Distress Nose: Normal Inspection Throat/Mouth: No Airway Compromise Head: Atraumatic, Normocephalic Neck: Full Range of Motion Respiratory/Chest: No Respiratory Distress, Lungs Clear, Normal Breath Sounds Cardiovascular: Regular Rate, Rhythm, No Gallop, No JVD, No Murmur (Female) Exam: Deferred Rectal (Female) Exam: Deferred Back Exam: Full Range of Motion Extremities: Normal Range of Motion, Pedal Edema (3+ pitting bilaterally) Neurological: Alert, Oriented, Normal Cognition, No Motor/Sensory Deficits Psychiatric: Normal Affect, Normal Mood Skin Exam: Warm, Dry, Intact EKG INTERPRETATION EKG Date: 06/08/18 Time: 17:25 Rhythm: NSR Rate (Beats/Min): 67 Comparison: No Change (03/04/18) Course - Vital Signs Last Recorded V/S: Last Vital Signs Temp 36.7 C 06/08/18 16:52 Pulse 71 06/08/18 16:52 Resp 20 06/08/18 16:52 BP 129/69 06/08/18 16:52 Pulse Ox 96 06/08/18 16:52 - Orders/Labs/Meds Orders: Active Orders 24 hr Category Date Time Status Admission Status [Patient Status] [ADT] Routine ADT 06/08/18 19:18 Ordered EKG Documentation Completion [RC] ASDIRECTED Care 06/08/18 17:10 Active Martin Catheter Insertion [Insert Urinary Catheter] [OM. Care 06/08/18 17:45 Ordered PC] Q24H Remove Martin Catheter [Urinary Catheter Removal] [RC] Care 06/08/18 19:21 Ordered Per Unit Routine Urinary Catheter Assessment [RC] QSHIFT Care 06/08/18 17:34 Active Ang Chest [CT] Stat Exams 06/08/18 18:14 Taken CXR [Chest 1V Frontal] [CR] Stat Exams 06/08/18 17:11 Taken THYROXINE (T4) FREE, DIRECT, S Stat Lab 06/08/18 18:50 Received UA W/MICROSCOPIC [URIN] Stat Lab 06/08/18 17:30 Ordered EKG 12 Lead [EK] Stat Ther 06/08/18 17:09 Ordered Labs: Laboratory Tests 06/08/18 06/08/18 06/08/18 Range/Units 17:20 17:20 17:20 WBC 7.3 (4.5-12.0) X10-3/uL RBC 3.77 (3.23-5.20) x10(6)uL Hgb 11.7 (11.5-15.5) g/dL Hct 35.2 (30.0-51.3) % MCV 93.2 (80-96) fL MCH 30.9 (27.7-33.6) pg MCHC 33.1 (32.2-35.4) g/dL RDW 14.7 (11.5-15.5) % Plt Count 175 (125-369) X10(3)uL MPV 9.8 (7.4-10.4) fL Neut % (Auto) 75.2 (46-82) % Lymph % (Auto) 17.1 (13-37) % [place] % (Auto) 4.4 (4-12) % Eos % (Auto) 3 (1.0-5.0) % Baso % (Auto) 1 (0-2) % Neut # (Auto) 5.5 (1.6-8.3) # Lymph # (Auto) 1.3 (0.6-5.0) # [place] # (Auto) 0.3 (0.0-1.3) # Eos # (Auto) 0.2 (0.0-0.8) # Baso # (Auto) 0.0 (0.0-0.2) # PT 9.6 (8.7-11.1) INR 0.99 (0.89-1.13) D-Dimer, Quantitative 0.80 H (0.0-0.59) mg/LFEU POC VBG pH (7.31-7.41) POC VBG pCO2 (41-51) mmHG POC VBG HCO3 (23-28) mmol/L POC VBG Total CO2 (24-29) mmol/L POC VBG Base Excess (-2-3) mmol/L Sodium (135-145) mmol/L Potassium (3.5-5.3) mmol/L Chloride (100-110) mmol/L Carbon Dioxide (21-32) mmol/L BUN (7-18) mg/dL Creatinine (0.55-1.02) mg/dL Est Cr Clr Drug Dosing mL/min Estimated GFR (MDRD) (>60) BUN/Creatinine Ratio (9-20) Glucose (80-116) mg/dL Calcium (8.6-10.2) mg/dL Total Bilirubin (0.1-1.3) mg/dL AST (5-25) IU/L ALT (12-36) U/L Alkaline Phosphatase (56-112) IU/L Troponin I (<0.017-0.056) ng/mL NT-Pro-B Natriuret Pep (<=125) pg/mL Total Protein (6.0-8.0) g/dL Albumin (3.2-4.6) g/dL Globulin g/dL Albumin/Globulin Ratio TSH, Ultra Sensitive (0.36-3.74) IU/mL Urine Color (YELLOW) Urine Appearance (CLEAR) Urine pH (5.0-6.5) Ur Specific [place] (1.010-1.025) Urine Protein (NEGATIVE) mg/dL Urine Glucose (UA) (NEGATIVE) mg/dL Urine Ketones (NEGATIVE) mg/dL Urine Occult Blood (NEGATIVE) Urine Nitrite (NEGATIVE) Urine Bilirubin (NEGATIVE) Urine Urobilinogen (NEGATIVE) mg/dL Ur Leukocyte Esterase (NEGATIVE) Urine RBC (0) Urine WBC (0) Ur Squamous Epith Cells (NS,R,O) Urine Bacteria (NS) 06/08/18 06/08/18 06/08/18 Range/Units 17:20 17:20 17:30 WBC (4.5-12.0) X10-3/uL RBC (3.23-5.20) x10(6)uL Hgb (11.5-15.5) g/dL Hct (30.0-51.3) % MCV (80-96) fL MCH (27.7-33.6) pg MCHC (32.2-35.4) g/dL RDW (11.5-15.5) % Plt Count (125-369) X10(3)uL MPV (7.4-10.4) fL Neut % (Auto) (46-82) % Lymph % (Auto) (13-37) % [place] % (Auto) (4-12) % Eos % (Auto) (1.0-5.0) % Baso % (Auto) (0-2) % Neut # (Auto) (1.6-8.3) # Lymph # (Auto) (0.6-5.0) # [place] # (Auto) (0.0-1.3) # Eos # (Auto) (0.0-0.8) # Baso # (Auto) (0.0-0.2) # PT (8.7-11.1) INR (0.89-1.13) D-Dimer, Quantitative (0.0-0.59) mg/LFEU POC VBG pH (7.31-7.41) POC VBG pCO2 (41-51) mmHG POC VBG HCO3 (23-28) mmol/L POC VBG Total CO2 (24-29) mmol/L POC VBG Base Excess (-2-3) mmol/L Sodium 141 (135-145) mmol/L Potassium 4.1 (3.5-5.3) mmol/L Chloride 106 (100-110) mmol/L Carbon Dioxide 34 H (21-32) mmol/L BUN 21 H (7-18) mg/dL Creatinine 1.2 H (0.55-1.02) mg/dL Est Cr Clr Drug Dosing 49.03 mL/min Estimated GFR (MDRD) 46 L (>60) BUN/Creatinine Ratio 17.5 (9-20) Glucose 113 (80-116) mg/dL Calcium 9.3 (8.6-10.2) mg/dL Total Bilirubin 0.2 (0.1-1.3) mg/dL AST 18 D (5-25) IU/L ALT 17 D (12-36) U/L Alkaline Phosphatase 85 (56-112) IU/L Troponin I < 0.017 L (<0.017-0.056) ng/mL NT-Pro-B Natriuret Pep 577 H (<=125) pg/mL Total Protein 7.0 (6.0-8.0) g/dL Albumin 2.6 L (3.2-4.6) g/dL Globulin 4.4 g/dL Albumin/Globulin Ratio 0.6 TSH, Ultra Sensitive 5.00 H (0.36-3.74) IU/mL Urine Color Yellow (YELLOW) Urine Appearance Clear (CLEAR) Urine pH 5.0 (5.0-6.5) Ur Specific [place] 1.010 (1.010-1.025) Urine Protein Negative (NEGATIVE) mg/dL Urine Glucose (UA) Normal (NEGATIVE) mg/dL Urine Ketones Negative (NEGATIVE) mg/dL Urine Occult Blood Negative (NEGATIVE) Urine Nitrite Negative (NEGATIVE) Urine Bilirubin Negative (NEGATIVE) Urine Urobilinogen Normal (NEGATIVE) mg/dL Ur Leukocyte Esterase Negative (NEGATIVE) Urine RBC 0-5 (0) Urine WBC 0-5 (0) Ur Squamous Epith Cells Rare (NS,R,O) Urine Bacteria Occasional H (NS) 06/08/18 Range/Units 18:50 WBC (4.5-12.0) X10-3/uL RBC (3.23-5.20) x10(6)uL Hgb (11.5-15.5) g/dL Hct (30.0-51.3) % MCV (80-96) fL MCH (27.7-33.6) pg MCHC (32.2-35.4) g/dL RDW (11.5-15.5) % Plt Count (125-369) X10(3)uL MPV (7.4-10.4) fL Neut % (Auto) (46-82) % Lymph % (Auto) (13-37) % [place] % (Auto) (4-12) % Eos % (Auto) (1.0-5.0) % Baso % (Auto) (0-2) % Neut # (Auto) (1.6-8.3) # Lymph # (Auto) (0.6-5.0) # [place] # (Auto) (0.0-1.3) # Eos # (Auto) (0.0-0.8) # Baso # (Auto) (0.0-0.2) # PT (8.7-11.1) INR (0.89-1.13) D-Dimer, Quantitative (0.0-0.59) mg/LFEU POC VBG pH 7.42 H (7.31-7.41) POC VBG pCO2 46.8 (41-51) mmHG POC VBG HCO3 30.5 H (23-28) mmol/L POC VBG Total CO2 32 H (24-29) mmol/L POC VBG Base Excess 6 H (-2-3) mmol/L Sodium (135-145) mmol/L Potassium (3.5-5.3) mmol/L Chloride (100-110) mmol/L Carbon Dioxide (21-32) mmol/L BUN (7-18) mg/dL Creatinine (0.55-1.02) mg/dL Est Cr Clr Drug Dosing mL/min Estimated GFR (MDRD) (>60) BUN/Creatinine Ratio (9-20) Glucose (80-116) mg/dL Calcium (8.6-10.2) mg/dL Total Bilirubin (0.1-1.3) mg/dL AST (5-25) IU/L ALT (12-36) U/L Alkaline Phosphatase (56-112) IU/L Troponin I (<0.017-0.056) ng/mL NT-Pro-B Natriuret Pep (<=125) pg/mL Total Protein (6.0-8.0) g/dL Albumin (3.2-4.6) g/dL Globulin g/dL Albumin/Globulin Ratio TSH, Ultra Sensitive (0.36-3.74) IU/mL Urine Color (YELLOW) Urine Appearance (CLEAR) Urine pH (5.0-6.5) Ur Specific [place] (1.010-1.025) Urine Protein (NEGATIVE) mg/dL Urine Glucose (UA) (NEGATIVE) mg/dL Urine Ketones (NEGATIVE) mg/dL Urine Occult Blood (NEGATIVE) Urine Nitrite (NEGATIVE) Urine Bilirubin (NEGATIVE) Urine Urobilinogen (NEGATIVE) mg/dL Ur Leukocyte Esterase (NEGATIVE) Urine RBC (0) Urine WBC (0) Ur Squamous Epith Cells (NS,R,O) Urine Bacteria (NS) Meds: Medications Discontinued Medications Generic Name Dose Route Start Last Admin Trade Name Kee PRN Reason Stop Dose Admin Furosemide 40 mg 06/08/18 17:10 06/08/18 17:20 Lasix IVPUSH 06/08/18 17:11 40 mg NOW ONE Administration Iopamidol 100 ml 06/08/18 18:23 06/08/18 18:36 Isovue-370 (76%) IV 06/08/18 18:24 83 ml . DIRECTED ONE Administration - Radiology Interpretation Free Text/Narrative:: CXR: NAD CTA Chest: No pulmonary emboli, left adrenal mass. - Re-Assessments/Exams Free Text/Narrative Re-Assessment/Exam: 06/08/18 19:24 2000 ml urine output after Lasix 40mg IV. Will admit for new onset CHF. Departure - Departure Time of Disposition: 19:26 Disposition: Admitted As Inpatient 66 Condition: Fair Clinical Impression: CHF (congestive heart failure) Qualifiers: Heart failure type: unspecified Heart failure chronicity: acute Qualified Code( s): I50.9 - Heart failure, unspecified Dyspnea Qualifiers: Dyspnea type: dyspnea on exertion Qualified Code(s): R06.09 - Other forms of dyspnea Hypothyroidism Qualifiers: Hypothyroidism type: unspecified Qualified Code(s): E03.9 - Hypothyroidism, unspecified - Discharge Information *PRESCRIPTION DRUG MONITORING PROGRAM REVIEWED*: No *COPY OF PRESCRIPTION DRUG MONITORING REPORT IN PATIENT JORJE: Not Applicable Referrals: Cherie Maurice NP [Primary Care Provider] - Forms: ED Department Discharge - My Orders Last 24 Hours: My Active Orders 06/08/18 17:09 EKG 12 Lead [EK] Stat 06/08/18 17:10 EKG Documentation Completion [RC] ASDIRECTED 06/08/18 17:11 CXR [Chest 1V Frontal] [CR] Stat 06/08/18 17:30 UA W/MICROSCOPIC [URIN] Stat 06/08/18 17:34 Urinary Catheter Assessment [RC] QSHIFT 06/08/18 17:45 Martin Catheter Insertion [Insert Urinary Catheter] [OM.PC] Q24H 06/08/18 18:14 Ang Chest [CT] Stat 08/22/18 18:50 THYROXINE (T4) FREE, DIRECT, S Stat 06/08/18 19:18 Admission Status [Patient Status] [ADT] Routine 06/08/18 19:21 Remove Martin Catheter [Urinary Catheter Removal] [RC] Per Unit Routine - Assessment/Plan Last 24 Hours: My Active Orders 06/08/18 17:09 EKG 12 Lead [EK] Stat 06/08/18 17:10 EKG Documentation Completion [RC] ASDIRECTED 06/08/18 17:11 CXR [Chest 1V Frontal] [CR] Stat 06/08/18 17:30 UA W/MICROSCOPIC [URIN] Stat 06/08/18 17:34 Urinary Catheter Assessment [RC] QSHIFT 06/08/18 17:45 Martin Catheter Insertion [Insert Urinary Catheter] [OM.PC] Q24H 06/08/18 18:14 Ang Chest [CT] Stat 06/08/18 18:50 THYROXINE (T4) FREE, DIRECT, S Stat 06/08/18 19:18 Admission Status [Patient Status] [ADT] Routine 06/08/18 19:21 Remove Martin Catheter [Urinary Catheter Removal] [RC] Per Unit Routine
[2018-06-08] MEDS ORDERED: Iopamidol 755 Mg/ML 100 ML Bottle IV ONE (18:23)
[2018-06-08] MEDS ORDERED: Albuterol 0.083% 2.5 MG/3 ML Neb Soln NEB PRN (19:44)
[2018-06-08] MEDS ORDERED: Gabapentin 400 MG Cap PO SCH (21:00)
[2018-06-08] MEDS ORDERED: busPIRone 15 MG Tab PO SCH (21:00)
[2018-06-08] MEDS ORDERED: rOPINIRole 2 MG Tab PO SCH (21:00)
[2018-06-08] MEDS ORDERED: Sodium Chloride 0.9% 1,000 ML IV SCH (21:45)
[2018-06-08] MEDS: Potassium Chloride 10 MEQ Tab.ER PO SCH (22:13)
[2018-06-08] MEDS: levETIRAcetam 500 MG Tab PO SCH (22:14)
[2018-06-08] MEDS: Mirtazapine 30 MG Tab PO SCH (22:15)
[2018-06-08] MEDS: Ticagrelor 90 MG Tab PO SCH (22:39)
[2018-06-08] MEDS: Gabapentin 400 MG Cap PO SCH (22:41)
[2018-06-08] MEDS: busPIRone 15 MG Tab PO SCH (23:17)
[2018-06-08] MEDS ORDERED: rOPINIRole 1 MG Tab PO ONE (23:30)
[2018-06-09] MEDS: Levothyroxine 50 MCG Tab PO SCH (05:30)
[2018-06-09] MEDS: Pantoprazole 40 MG Tab.CR PO SCH (05:30)
[2018-06-09] MEDS ORDERED: Non-Formulary Medication 1 Each (Fluoxetine Hcl [Fluoxetine Hcl] 40 MG) PO SCH (09:00)
[2018-06-09] MEDS ORDERED: Furosemide 40 MG/4 ML VIAL IVPUSH SCH (09:00)
[2018-06-09] MEDS ORDERED: Allopurinol 100 MG Tab PO SCH (09:00)
--- NOTE | 2018-06-09 09:01 | PCM.HP ---
H&P History of Present Illness - General Date of Service: 06/09/18 Admit Problem/Dx: Admission Diagnosis/Problem Admission Diagnosis/Problem CHF, Congestive heart failure Source of Information: Patient - History of Present Illness Initial Comments - Free Text/Narative: Fior is a 62-year-old female who came in because of progressive shortness of breath. She had a stent on the right coronary in , and since that time has been experiencing some shortness of breath. She got worse yesterday to the point where she could not complete a sentence without shortness of breath or walk even 1 or 2 steps. She also complained of excessive weight gain over 30 pounds in a few months, leg swelling ,cough and extreme fatigue. This was also associated with some chest tightness but no samuel chest pain. She has a history of stroke years ago, she is on seizure prophylaxis medication, has hyperlipidemia, obesity but denies any history of chronic lung disease. She quit smoking about 6 years ago. - Related Data Allergies/Adverse Reactions: Allergies Allergy/AdvReac Type Severity Reaction Status Date / Time tetanus and diphtheria Allergy Hives Verified 06/08/18 17:03 toxoids [tetanus & diphtheria toxoids] Home Medications: Home Meds Amitriptyline [Elavil] 50 mg PO BEDTIME 05/04/15 [History] Potassium Chloride [Klor-Con M20] 10 meq PO BID 05/04/15 [History] levETIRAcetam [Keppra] 1,000 mg PO BID 05/04/15 [History] rOPINIRole [Requip] 2 mg PO BEDTIME 05/04/15 [History] FLUoxetine [PROzac] 20 mg PO DAILY 05/30/15 [History] Furosemide [Lasix] 40 mg PO DAILY tablet 06/03/15 [Rx] FLUoxetine HCl [Fluoxetine HCl] 40 mg PO DAILY 08/30/17 [History] Gabapentin [Neurontin] 400 mg PO BID 08/30/17 [History] Lisinopril 5 mg PO DAILY 08/30/17 [History] Mirtazapine 30 mg PO BEDTIME 08/30/17 [History] Multivitamin [Multivitamins] 1 each PO DAILY 08/30/17 [History] Albuterol [Ventolin HFA] 2 inhalation PO ASDIRECTED PRN 06/08/18 [History] Aspirin 81 mg PO DAILY 06/08/18 [History] Propranolol [Inderal LA] 80 mg PO DAILY 06/08/18 [History] Rosuvastatin [Crestor] 20 mg PO DAILY 06/08/18 [History] Ticagrelor [Brilinta] 90 mg BID 06/08/18 [History] busPIRone [Buspar] 15 mg PO BID 06/08/18 [History] Acetaminophen [Tylenol] 650 mg PO Q4H PRN 06/09/18 [History] Allopurinol [Zyloprim] 300 mg PO DAILY 06/09/18 [History] Nitroglycerin [Nitrostat] 0.4 mg SL ASDIRECTED PRN 06/09/18 [History] Pantoprazole Sodium [Protonix] 40 mg PO DAILY@0600 06/09/18 [History] Sennosides/Docusate Sodium [Senna Plus Tablet] 1 tab PO DAILY PRN 06/09/18 [ History] Past Medical History HEENT History: Reports: None Cardiovascular History: Reports: Aneurysm, Hypertension, ID, SOB on Exertion, Other (See Below) Other Cardiovascular History: has had many strokes, L sided weakness (arm) Respiratory History: Reports: Pneumonia, Recurrent, SOB Gastrointestinal History: Reports: Chronic Constipation, Hemorrhoids Genitourinary History: Reports: None, UTI, Recurrent 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: , Other (See Below) Other OB/BYN History: Musculoskeletal History: Reports: Arthritis, Fracture, Gout Other Musculoskeletal History: hx fx R foot Neurological History: Reports: CVA, Seizure, Other (See Below) Other Neuro History: has had numerous cva's in pasr, L sided weakness arm and leg Psychiatric History: Reports: Anxiety, Depression, Eating Disorders, Emotional Problems, Panic Attack Endocrine/Metabolic History: Reports: Obesity/BMI 30+ Hematologic History: Reports: None Immunologic History: Reports: None Oncologic (Cancer) History: Reports: None Dermatologic History: Reports: None, Other (See Below) Other Dermatologic History: redness both sides of abdominal folds, bilateral groin areas, under left breast - Infectious Disease History Infectious Disease History: Reports: Chicken Pox, Measles, Mumps - Past Surgical History Head Surgeries/Procedures: Reports: None HEENT Surgical History: Reports: Adenoidectomy, Oral Surgery, Tonsillectomy, Other (See Below) Other HEENT Surgeries/Procedures: all of teeth pulled Cardiovascular Surgical History: Reports: Percutaneous Transluminal Angioplasty Respiratory Surgical History: Reports: None GI Surgical History: Reports: EGD Female Surgical History: Reports: None Endocrine Surgical History: Reports: None Neurological Surgical History: Reports: None Musculoskeletal Surgical History: Reports: Other (See Below) Other Musculoskeletal Surgeries/Procedures:: very weak, has right ankle fx and 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 Oncologic Surgical History: Reports: None Dermatological Surgical History: Reports: None Social & Family History - Family History Family Medical History: Noncontributory - Tobacco Use Smoking Status *Q: Former Smoker Years of Tobacco use: 40 Used Tobacco, but Quit: Yes Month/Year Tobacco Last Used: 8 years ago Second Hand Smoke Exposure: No - Caffeine Use Caffeine Use: Reports: Soda Other Caffeine Use: mountain dew - Recreational Drug Use Recreational Drug Use: No - Living Situation & Occupation Living situation: Reports: Single Occupation: Unemployed H&P Review of Systems - Review of Systems: Review Of Systems: ROS reveals no pertinent complaints other than HPI. Exam - Exam Exam: See Below - Vital Signs Vital Signs: Last Vital Signs Temp 97.8 F 06/09/18 08:00 Pulse 62 06/09/18 08:00 Resp 20 06/09/18 08:00 BP 111/55 L 06/09/18 08:00 Pulse Ox 93 L 06/09/18 08:00 Weight: 153.405 kg - Exam Quality Assessment: Supplemental Oxygen General: Alert, Oriented HEENT: PERRLA, Hearing Intact, Mucosa Moist & [place], Nares Patent, Normal Nasal Septum, Posterior Pharynx Clear, Conjunctiva Clear, EOMI, EACs Clear, TMs Clear Neck: Supple, Trachea Midline, 2 Lungs: Decreased Breath Sounds, Crackles, Rhonchi Cardiovascular: Regular Rate, Regular Rhythm GI/Abdominal Exam: Normal Bowel Sounds, Soft, Non-Tender, No Organomegaly, No Distention, No Abnormal Bruit, No Mass, Pelvis Stable (Female) Exam: Deferred Rectal (Female) Exam: Deferred Back Exam: Normal Inspection, Full Range of Motion, NT Extremities: Pedal Edema Skin: Warm, Dry, Intact Neurological: Cranial Nerves Intact, Reflexes Equal Bilateral Neuro Extensive - Mental Status: Alert, Oriented x3, Normal Mood/Affect, Normal Cognition Neuro Extensive - Motor, Sensory, Reflexes: CN II-XII Intact, Normal Gait, Normal Reflexes Psychiatric: Alert, Normal Affect, Normal Mood - Patient Data Lab Results Last 24 hrs: Laboratory Results - last 24 hr 06/08/18 06/08/18 06/08/18 Range/Units 17:20 17:20 17:20 WBC 7.3 (4.5-12.0) X10-3/uL RBC 3.77 (3.23-5.20) x10(6)uL Hgb 11.7 (11.5-15.5) g/dL Hct 35.2 (30.0-51.3) % MCV 93.2 (80-96) fL MCH 30.9 (27.7-33.6) pg MCHC 33.1 (32.2-35.4) g/dL RDW 14.7 (11.5-15.5) % Plt Count 175 (125-369) X10(3)uL MPV 9.8 (7.4-10.4) fL Neut % (Auto) 75.2 (46-82) % Lymph % (Auto) 17.1 (13-37) % [place] % (Auto) 4.4 (4-12) % Eos % (Auto) 3 (1.0-5.0) % Baso % (Auto) 1 (0-2) % Neut # (Auto) 5.5 (1.6-8.3) # Lymph # (Auto) 1.3 (0.6-5.0) # [place] # (Auto) 0.3 (0.0-1.3) # Eos # (Auto) 0.2 (0.0-0.8) # Baso # (Auto) 0.0 (0.0-0.2) # PT 9.6 (8.7-11.1) INR 0.99 (0.89-1.13) D-Dimer, Quantitative 0.80 H (0.0-0.59) mg/LFEU POC VBG pH (7.31-7.41) POC VBG pCO2 (41-51) mmHG POC VBG HCO3 (23-28) mmol/L POC VBG Total CO2 (24-29) mmol/L POC VBG Base Excess (-2-3) mmol/L Sodium (135-145) mmol/L Potassium (3.5-5.3) mmol/L Chloride (100-110) mmol/L Carbon Dioxide (21-32) mmol/L BUN (7-18) mg/dL Creatinine (0.55-1.02) mg/dL Est Cr Clr Drug Dosing mL/min Estimated GFR (MDRD) (>60) BUN/Creatinine Ratio (9-20) Glucose (80-116) mg/dL Calcium (8.6-10.2) mg/dL Magnesium (1.8-2.5) mg/dL Total Bilirubin (0.1-1.3) mg/dL AST (5-25) IU/L ALT (12-36) U/L Alkaline Phosphatase (56-112) IU/L Troponin I (<0.017-0.056) ng/mL NT-Pro-B Natriuret Pep (<=125) pg/mL Total Protein (6.0-8.0) g/dL Albumin (3.2-4.6) g/dL Globulin g/dL Albumin/Globulin Ratio TSH, Ultra Sensitive (0.36-3.74) IU/mL Urine Color (YELLOW) Urine Appearance (CLEAR) Urine pH (5.0-6.5) Ur Specific [place] (1.010-1.025) Urine Protein (NEGATIVE) mg/dL Urine Glucose (UA) (NEGATIVE) mg/dL Urine Ketones (NEGATIVE) mg/dL Urine Occult Blood (NEGATIVE) Urine Nitrite (NEGATIVE) Urine Bilirubin (NEGATIVE) Urine Urobilinogen (NEGATIVE) mg/dL Ur Leukocyte Esterase (NEGATIVE) Urine RBC (0) Urine WBC (0) Ur Squamous Epith Cells (NS,R,O) Urine Bacteria (NS) 06/08/18 06/08/18 06/08/18 Range/Units 17:20 17:20 17:30 WBC (4.5-12.0) X10-3/uL RBC (3.23-5.20) x10(6)uL Hgb (11.5-15.5) g/dL Hct (30.0-51.3) % MCV (80-96) fL MCH (27.7-33.6) pg MCHC (32.2-35.4) g/dL RDW (11.5-15.5) % Plt Count (125-369) X10(3)uL MPV (7.4-10.4) fL Neut % (Auto) (46-82) % Lymph % (Auto) (13-37) % [place] % (Auto) (4-12) % Eos % (Auto) (1.0-5.0) % Baso % (Auto) (0-2) % Neut # (Auto) (1.6-8.3) # Lymph # (Auto) (0.6-5.0) # [place] # (Auto) (0.0-1.3) # Eos # (Auto) (0.0-0.8) # Baso # (Auto) (0.0-0.2) # PT (8.7-11.1) INR (0.89-1.13) D-Dimer, Quantitative (0.0-0.59) mg/LFEU POC VBG pH (7.31-7.41) POC VBG pCO2 (41-51) mmHG POC VBG HCO3 (23-28) mmol/L POC VBG Total CO2 (24-29) mmol/L POC VBG Base Excess (-2-3) mmol/L Sodium 141 (135-145) mmol/L Potassium 4.1 (3.5-5.3) mmol/L Chloride 106 (100-110) mmol/L Carbon Dioxide 34 H (21-32) mmol/L BUN 21 H (7-18) mg/dL Creatinine 1.2 H (0.55-1.02) mg/dL Est Cr Clr Drug Dosing 49.03 mL/min Estimated GFR (MDRD) 46 L (>60) BUN/Creatinine Ratio 17.5 (9-20) Glucose 113 (80-116) mg/dL Calcium 9.3 (8.6-10.2) mg/dL Magnesium (1.8-2.5) mg/dL Total Bilirubin 0.2 (0.1-1.3) mg/dL AST 18 D (5-25) IU/L ALT 17 D (12-36) U/L Alkaline Phosphatase 85 (56-112) IU/L Troponin I < 0.017 L (<0.017-0.056) ng/mL NT-Pro-B Natriuret Pep 577 H (<=125) pg/mL Total Protein 7.0 (6.0-8.0) g/dL Albumin 2.6 L (3.2-4.6) g/dL Globulin 4.4 g/dL Albumin/Globulin Ratio 0.6 TSH, Ultra Sensitive 5.00 H (0.36-3.74) IU/mL Urine Color Yellow (YELLOW) Urine Appearance Clear (CLEAR) Urine pH 5.0 (5.0-6.5) Ur Specific [place] 1.010 (1.010-1.025) Urine Protein Negative (NEGATIVE) mg/dL Urine Glucose (UA) Normal (NEGATIVE) mg/dL Urine Ketones Negative (NEGATIVE) mg/dL Urine Occult Blood Negative (NEGATIVE) Urine Nitrite Negative (NEGATIVE) Urine Bilirubin Negative (NEGATIVE) Urine Urobilinogen Normal (NEGATIVE) mg/dL Ur Leukocyte Esterase Negative (NEGATIVE) Urine RBC 0-5 (0) Urine WBC 0-5 (0) Ur Squamous Epith Cells Rare (NS,R,O) Urine Bacteria Occasional H (NS) 06/08/18 06/08/18 06/09/18 Range/Units 18:50 18:50 06:30 WBC 6.5 (4.5-12.0) X10-3/uL RBC 3.40 (3.23-5.20) x10(6)uL Hgb 10.7 L (11.5-15.5) g/dL Hct 31.9 (30.0-51.3) % MCV 94.1 (80-96) fL MCH 31.5 (27.7-33.6) pg MCHC 33.5 (32.2-35.4) g/dL RDW 14.7 (11.5-15.5) % Plt Count 156 (125-369) X10(3)uL MPV 10.0 (7.4-10.4) fL Neut % (Auto) 66.3 (46-82) % Lymph % (Auto) 24.5 (13-37) % [place] % (Auto) 5.5 (4-12) % Eos % (Auto) 3 (1.0-5.0) % Baso % (Auto) 1 (0-2) % Neut # (Auto) 4.3 (1.6-8.3) # Lymph # (Auto) 1.6 (0.6-5.0) # [place] # (Auto) 0.4 (0.0-1.3) # Eos # (Auto) 0.2 (0.0-0.8) # Baso # (Auto) 0.0 (0.0-0.2) # PT (8.7-11.1) INR (0.89-1.13) D-Dimer, Quantitative (0.0-0.59) mg/LFEU POC VBG pH 7.42 H (7.31-7.41) POC VBG pCO2 46.8 (41-51) mmHG POC VBG HCO3 30.5 H (23-28) mmol/L POC VBG Total CO2 32 H (24-29) mmol/L POC VBG Base Excess 6 H (-2-3) mmol/L Sodium (135-145) mmol/L Potassium (3.5-5.3) mmol/L Chloride (100-110) mmol/L Carbon Dioxide (21-32) mmol/L BUN (7-18) mg/dL Creatinine (0.55-1.02) mg/dL Est Cr Clr Drug Dosing mL/min Estimated GFR (MDRD) (>60) BUN/Creatinine Ratio (9-20) Glucose (80-116) mg/dL Calcium (8.6-10.2) mg/dL Magnesium 1.9 (1.8-2.5) mg/dL Total Bilirubin (0.1-1.3) mg/dL AST (5-25) IU/L ALT (12-36) U/L Alkaline Phosphatase (56-112) IU/L Troponin I (<0.017-0.056) ng/mL NT-Pro-B Natriuret Pep (<=125) pg/mL Total Protein (6.0-8.0) g/dL Albumin (3.2-4.6) g/dL Globulin g/dL Albumin/Globulin Ratio TSH, Ultra Sensitive (0.36-3.74) IU/mL Urine Color (YELLOW) Urine Appearance (CLEAR) Urine pH (5.0-6.5) Ur Specific [place] (1.010-1.025) Urine Protein (NEGATIVE) mg/dL Urine Glucose (UA) (NEGATIVE) mg/dL Urine Ketones (NEGATIVE) mg/dL Urine Occult Blood (NEGATIVE) Urine Nitrite (NEGATIVE) Urine Bilirubin (NEGATIVE) Urine Urobilinogen (NEGATIVE) mg/dL Ur Leukocyte Esterase (NEGATIVE) Urine RBC (0) Urine WBC (0) Ur Squamous Epith Cells (NS,R,O) Urine Bacteria (NS) 06/09/18 Range/Units 06:30 WBC (4.5-12.0) X10-3/uL RBC (3.23-5.20) x10(6)uL Hgb (11.5-15.5) g/dL Hct (30.0-51.3) % MCV (80-96) fL MCH (27.7-33.6) pg MCHC (32.2-35.4) g/dL RDW (11.5-15.5) % Plt Count (125-369) X10(3)uL MPV (7.4-10.4) fL Neut % (Auto) (46-82) % Lymph % (Auto) (13-37) % [place] % (Auto) (4-12) % Eos % (Auto) (1.0-5.0) % Baso % (Auto) (0-2) % Neut # (Auto) (1.6-8.3) # Lymph # (Auto) (0.6-5.0) # [place] # (Auto) (0.0-1.3) # Eos # (Auto) (0.0-0.8) # Baso # (Auto) (0.0-0.2) # PT (8.7-11.1) INR (0.89-1.13) D-Dimer, Quantitative (0.0-0.59) mg/LFEU POC VBG pH (7.31-7.41) POC VBG pCO2 (41-51) mmHG POC VBG HCO3 (23-28) mmol/L POC VBG Total CO2 (24-29) mmol/L POC VBG Base Excess (-2-3) mmol/L Sodium 142 (135-145) mmol/L Potassium 3.9 (3.5-5.3) mmol/L Chloride 106 (100-110) mmol/L Carbon Dioxide 33 H (21-32) mmol/L BUN 24 H (7-18) mg/dL Creatinine 1.2 H (0.55-1.02) mg/dL Est Cr Clr Drug Dosing 49.03 mL/min Estimated GFR (MDRD) 46 L (>60) BUN/Creatinine Ratio 20.0 (9-20) Glucose 99 (80-116) mg/dL Calcium 9.0 (8.6-10.2) mg/dL Magnesium (1.8-2.5) mg/dL Total Bilirubin (0.1-1.3) mg/dL AST (5-25) IU/L ALT (12-36) U/L Alkaline Phosphatase (56-112) IU/L Troponin I (<0.017-0.056) ng/mL NT-Pro-B Natriuret Pep (<=125) pg/mL Total Protein (6.0-8.0) g/dL Albumin (3.2-4.6) g/dL Globulin g/dL Albumin/Globulin Ratio TSH, Ultra Sensitive (0.36-3.74) IU/mL Urine Color (YELLOW) Urine Appearance (CLEAR) Urine pH (5.0-6.5) Ur Specific [place] (1.010-1.025) Urine Protein (NEGATIVE) mg/dL Urine Glucose (UA) (NEGATIVE) mg/dL Urine Ketones (NEGATIVE) mg/dL Urine Occult Blood (NEGATIVE) Urine Nitrite (NEGATIVE) Urine Bilirubin (NEGATIVE) Urine Urobilinogen (NEGATIVE) mg/dL Ur Leukocyte Esterase (NEGATIVE) Urine RBC (0) Urine WBC (0) Ur Squamous Epith Cells (NS,R,O) Urine Bacteria (NS) Result Diagrams: 06/09/18 06:30 06/09/18 06:30 Imaging Impressions Last 24 hrs: CT chest was negative for PE, but showed an adrenal mass. EKG INTERPRETATION EKG Date: 06/08/18 Rhythm: NSR Comparison: No Change - Problem List (1) CHF (congestive heart failure) SNOMED Code(s): 53751580 ICD Code: I50.9 - HEART FAILURE, UNSPECIFIED Status: Acute Current Visit : Yes Qualifiers: Heart failure type: unspecified Heart failure chronicity: acute Qualified Code(s): I50.9 - Heart failure, unspecified (2) COPD (chronic obstructive pulmonary disease) SNOMED Code(s): 63019243 ICD Code: J44.9 - CHRONIC OBSTRUCTIVE PULMONARY DISEASE, UNSPECIFIED Status : Acute Current Visit: Yes Qualifiers: COPD type: chronic bronchitis (3) HTN (hypertension) SNOMED Code(s): 61963503 ICD Code: I10 - ESSENTIAL (PRIMARY) HYPERTENSION Status: Acute Current Visit: Yes Qualifiers: Hypertension type: essential hypertension Qualified Code(s): I10 - Essential (primary) hypertension (4) CAD (coronary artery disease) SNOMED Code(s): 56462602 ICD Code: I25.10 - ATHSCL HEART DISEASE OF [place] CORONARY ARTERY W/O ANG PCTRS Status: Acute Current Visit: Yes Qualifiers: Coronary Disease-Associated Artery/Lesion type: [place] artery Associated angina: with stable angina (5) HLD (hyperlipidemia) SNOMED Code(s): 64099111 ICD Code: E78.5 - HYPERLIPIDEMIA, UNSPECIFIED Status: Chronic Current Visit: Yes Qualifiers: Hyperlipidemia type: unspecified Qualified Code(s): E78.5 - Hyperlipidemia , unspecified (6) H/O: stroke SNOMED Code(s): 011042250 ICD Code: Z86.73 - PRSNL HX OF TIA (TIA), AND CEREB INFRC W/O RESID DEFICITS Status: Acute Current Visit: Yes (7) Morbid obesity SNOMED Code(s): 396499828 ICD Code: E66.01 - MORBID (SEVERE) OBESITY DUE TO EXCESS CALORIES Status: Chronic Current Visit: No (8) Adrenal mass Status: Acute Current Visit: Yes Problem List Initiated/Reviewed/Updated: Yes Orders Last 24hrs: Active Orders 24 hr Category Date Time Status Patient Status [ADT] Routine ADT 06/08/18 19:30 Active Ambulate [RC] PER UNIT ROUTINE Care 06/08/18 19:30 Active Antiembolic Devices [RC] .Routine Care 06/08/18 19:31 Active Martin Catheter Insertion [Insert Urinary Catheter] [OM. Care 06/08/18 17:45 Ordered PC] Q24H Height and Weight [RC] 06 Care 06/08/18 19:30 Active Intake and Output [RC] 06,14,22 Care 06/08/18 19:31 Active Notify Provider Vital Signs [RC] ASDIRECTED Care 06/08/18 19:32 Active Oxygen Therapy [RC] PRN Care 06/08/18 19:31 Active Pulse Oximetry [RC] PRN Care 06/08/18 19:30 Active RT Aerosol Therapy [RC] ASDIRECTED Care 06/08/18 19:45 Active RT Aerosol Therapy [RC] ASDIRECTED Care 06/09/18 08:51 Ordered Telemetry Monitoring [Cardiac Monitoring] [RC] Q8HR Care 06/08/18 19:35 Active Up With Assistance [RC] ASDIRECTED Care 06/08/18 19:30 Active Vital Signs [RC] 08,12,16,20,00,04 Care 06/08/18 19:30 Active Heart Healthy Diet [DIET] Diet 06/08/18 Dinner Active Ang Chest [CT] Stat Exams 06/08/18 18:14 Taken CXR [Chest 1V Frontal] [CR] Stat Exams 06/08/18 17:11 Taken Echo Comp wo Cont [US] Urgent Exams 06/08/18 19:42 Ordered BASIC METABOLIC PANEL,BMP [CHEM] AM Lab 06/10/18 05:11 Ordered CBC WITH AUTO DIFF [HEME] AM Lab 06/10/18 05:11 Ordered PRO B-TYPE NATRIUR PEPT,BNPPRO [CHEM] DAILY Lab 06/10/18 05:11 Ordered THYROXINE (T4) FREE, DIRECT, S Stat Lab 06/08/18 18:50 Received TROPONIN I [CHEM] AM Lab 06/10/18 05:11 Ordered UA W/MICROSCOPIC [URIN] Stat Lab 06/08/18 17:30 Ordered Albuterol/Ipratropium [DuoNeb 3.0-0.5 MG/3 ML] Med 06/09/18 11:00 Ordered 3 ml NEB QIDRT Allopurinol [Zyloprim] Med 06/09/18 09:00 Active 300 mg PO DAILY Amitriptyline [Elavil] Med 06/08/18 21:00 Active 50 mg PO BEDTIME Aspirin Med 06/09/18 09:00 Ordered 81 mg PO DAILY FLUoxetine [PROzac] Med 06/09/18 09:00 Active 60 mg PO DAILY Furosemide [Lasix] Med 06/09/18 09:00 Ordered 40 mg IVPUSH BID Gabapentin [Neurontin] Med 06/08/18 22:30 Active 400 mg PO BID Levothyroxine [Synthroid] Med 06/09/18 06:00 Active 50 mcg PO DAILY@0600 Lisinopril [Prinivil] Med 06/09/18 09:00 Active 5 mg PO DAILY Mirtazapine [Remeron] Med 06/08/18 21:00 Active 30 mg PO BEDTIME Multivitamins,Therapeutic [Thera] Med 06/09/18 09:00 Active 1 each PO DAILY Pantoprazole [ProTONIX] Med 06/09/18 06:00 Active 40 mg PO DAILY@0600 Potassium Chloride [Klor-Con 10] Med 06/08/18 21:00 Active 10 meq PO BID Propranolol [Inderal LA] Med 06/09/18 09:00 Active 80 mg PO DAILY Rosuvastatin [Crestor] Med 06/09/18 09:00 Active 20 mg PO DAILY Ticagrelor [Brilinta] Med 06/08/18 21:00 Active 90 mg PO BID busPIRone [Buspar] Med 06/08/18 22:30 Active 15 mg PO BID levETIRAcetam [Keppra] Med 06/08/18 21:00 Active 1,000 mg PO BID rOPINIRole [Requip] Med 06/09/18 21:00 Active 2 mg PO BEDTIME DVT/VTE Prophylaxis Reflex [OM.PC] Per Unit Routine Oth 06/08/18 19:30 Ordered Resuscitation Status Routine Resus Stat 06/08/18 19:30 Ordered EKG 12 Lead [EK] Stat Ther 06/08/18 17:09 Ordered Medication Orders Albuterol/Ipratropium (Duoneb 3.0-0.5 Mg/3 Ml) 3 ml NEB QIDRT [facility] Allopurinol (Zyloprim) 300 mg PO DAILY [facility] Amitriptyline HCl (Elavil) 50 mg PO BEDTIME [facility] Last Admin: 06/08/18 22:39 Dose: 50 mg Aspirin (Aspirin) 81 mg PO DAILY [facility] Buspirone HCl (Buspar) 15 mg PO BID [facility] Last Admin: 06/08/18 23:17 Dose: 15 mg Fluoxetine HCl (Prozac) 60 mg PO DAILY [facility] Furosemide (Lasix) 40 mg IVPUSH BIDDIURETIC [facility] Gabapentin (Neurontin) 400 mg PO BID [facility] Last Admin: 06/08/18 22:41 Dose: 400 mg Levetiracetam (Keppra) 1,000 mg PO BID [facility] Last Admin: 06/08/18 22:14 Dose: 1,000 mg Levothyroxine Sodium (Synthroid) 50 mcg PO DAILY@0600 [facility] Last Admin: 06/09/18 05:30 Dose: 50 mcg Lisinopril (Prinivil) 5 mg PO DAILY [facility] Mirtazapine (Remeron) 30 mg PO BEDTIME [facility] Last Admin: 06/08/18 22:15 Dose: 30 mg Multivitamins (Thera) 1 each PO DAILY [facility] Pantoprazole Sodium (Protonix) 40 mg PO DAILY@0600 [facility] Last Admin: 06/09/18 05:30 Dose: 40 mg Potassium Chloride (Klor-Con 10) 10 meq PO BID [facility] Last Admin: 06/08/18 22:13 Dose: 10 meq Propranolol HCl (Inderal La) 80 mg PO DAILY [facility] Ropinirole HCl (Requip) 2 mg PO BEDTIME [facility] Rosuvastatin Calcium (Crestor) 20 mg PO DAILY [facility] Ticagrelor (Brilinta) 90 mg PO BID [facility] Last Admin: 06/08/18 22:39 Dose: 90 mg Assessment/Plan Comment:: Shortness of breath is likely due to CHF, although the BNP was only marginally elevated. I agree with obtaining an ECHO tomorrow. Also I agree with diuresis with IV Lasix,increase to BID.She does have wheezing And a history of smoking, so I will also give a Solu-Medrol and DuoNeb's when necessary. Resume all home medications,including ASA and brillinta..
[2018-06-09] MEDS: Aspirin 81 MG Tab.Chew PO SCH (09:37)
[2018-06-09] MEDS: Rosuvastatin 10 MG Tab PO SCH (09:38)
[2018-06-09] MEDS: busPIRone 15 MG Tab PO SCH ×2 (09:38→20:14)
[2018-06-09] MEDS: levETIRAcetam 500 MG Tab PO SCH ×2 (09:38→20:14)
[2018-06-09] MEDS: Ticagrelor 90 MG Tab PO SCH ×2 (09:38→20:13)
[2018-06-09] MEDS: Furosemide 40 MG/4 ML VIAL IVPUSH SCH ×2 (09:39→13:35)
[2018-06-09] MEDS: Gabapentin 400 MG Cap PO SCH ×2 (09:39→20:15)
[2018-06-09] MEDS: FLUoxetine 20 MG Cap PO SCH (09:39)
[2018-06-09] MEDS: methylPREDNISolone Sodium Succinate 125 MG/2 ML SDV IVPUSH SCH ×2 (09:39→17:40)
[2018-06-09] MEDS: Allopurinol 300 MG Tab PO SCH (09:40)
[2018-06-09] MEDS: Potassium Chloride 10 MEQ Tab.ER PO SCH ×2 (09:40→20:15)
[2018-06-09] MEDS: Multivitamins,Therapeutic Tab PO SCH (09:40)
[2018-06-09] MEDS: Propranolol 80 MG Cap.ER PO SCH (10:21)
[2018-06-09] MEDS: Lisinopril 5 MG Tab PO SCH (10:21)
[2018-06-09] MEDS: Albuterol/Ipratropium 3.0-0.5 MG/3 ML Neb Soln NEB SCH ×3 (10:52→20:14)
[2018-06-09] MEDS: Sodium Chloride 0.9% 10 ML Syringe FLUSH PRN (13:35)
[2018-06-09] MEDS: Mirtazapine 30 MG Tab PO SCH (20:15)
[2018-06-09] MEDS ORDERED: rOPINIRole 1 MG Tab PO SCH (21:00)
[2018-06-09] MEDS ORDERED: Acetaminophen 325 MG Tab PO PRN ×2 (21:47→22:10)
[2018-06-09] MEDS ORDERED: Acetaminophen 325 MG Tab ONE (22:18)
[2018-06-09] MEDS: Acetaminophen 325 MG Tab PO PRN (22:22)
[2018-06-10] MEDS: methylPREDNISolone Sodium Succinate 125 MG/2 ML SDV IVPUSH SCH ×2 (01:36→10:24)
[2018-06-10] MEDS: Sodium Chloride 0.9% 10 ML Syringe FLUSH PRN ×2 (01:36→10:25)
[2018-06-10] MEDS: Pantoprazole 40 MG Tab.CR PO SCH (06:33)
[2018-06-10] MEDS: Levothyroxine 50 MCG Tab PO SCH (06:33)
[2018-06-10] MEDS: Albuterol/Ipratropium 3.0-0.5 MG/3 ML Neb Soln NEB SCH (07:10)
[2018-06-10] MEDS: busPIRone 15 MG Tab PO SCH (08:21)
[2018-06-10] MEDS: Aspirin 81 MG Tab.Chew PO SCH (08:21)
[2018-06-10] MEDS: Lisinopril 5 MG Tab PO SCH (08:21)
[2018-06-10] MEDS: Multivitamins,Therapeutic Tab PO SCH (08:21)
[2018-06-10] MEDS: levETIRAcetam 500 MG Tab PO SCH (08:22)
[2018-06-10] MEDS: Ticagrelor 90 MG Tab PO SCH (08:22)
[2018-06-10] MEDS: Gabapentin 400 MG Cap PO SCH (08:22)
[2018-06-10] MEDS: Potassium Chloride 10 MEQ Tab.ER PO SCH (08:22)
[2018-06-10] MEDS: Allopurinol 300 MG Tab PO SCH (08:22)
[2018-06-10] MEDS: FLUoxetine 20 MG Cap PO SCH (08:22)
[2018-06-10] MEDS: Propranolol 80 MG Cap.ER PO SCH (08:22)
[2018-06-10 08:23] VITALS: BP 126/78
[2018-06-10] MEDS: Rosuvastatin 10 MG Tab PO SCH (08:23)
[2018-06-10] MEDS: Acetaminophen 325 MG Tab PO PRN (09:05)
--- NOTE | 2018-06-10 09:16 | CR ---
INDICATION: Short of breath. CHEST: An AP upright portable view of the chest was obtained 06/08/2018 and compared with 03/04/2018 and 11/11/2017. Findings remain compatible with ASHD with mild cardiomegaly. Exogenous obesity with poor inspirations emphasizing basilar markings, making it difficult to exclude minimal patchy bronchopneumonia at the lung bases. Overlying EKG leads and snaps are noted. There is an appearance of prominence of the upper lung field pulmonary vascular markings, raising question of CHF. IMPRESSION: 1. ASHD, cardiomegaly, possible mild CHF. 2. Heavy markings at the lung bases may be on the basis of poor inspiration and fibrosis, but we cannot exclude minimal patchy bronchopneumonia. 3. Exogenous obesity. MTDD
--- NOTE | 2018-06-10 10:10 | PCM.PN ---
- General Info Date of Service: 06/10/18 Admission Dx/Problem (Free Text): Patients doing well. She denies chest pain or shortness of breath. Leg swelling much better. She wants to go home today. - Patient Data Vitals - Most Recent: Last Vital Signs Temp 97.6 F 06/10/18 08:00 Pulse 75 06/10/18 08:00 Resp 20 06/10/18 08:00 BP 126/78 06/10/18 08:21 Pulse Ox 92 L 06/10/18 08:00 Weight - Most Recent: 338 lb 3.2 oz I&O - Last 24 Hours: Intake & Output 06/09/18 06/10/18 06/10/18 22:59 06:59 14:59 Intake Total 300 Output Total 300 Balance 0 Lab Results Last 24 Hours: Laboratory Results - last 24 hr 06/08/18 06/10/18 06/10/18 Range/Units 18:50 06:35 06:35 WBC 8.4 (4.5-12.0) X10-3/uL RBC 4.09 (3.23-5.20) x10(6)uL Hgb 12.2 (11.5-15.5) g/dL Hct 38.0 (30.0-51.3) % MCV 92.8 (80-96) fL MCH 29.9 (27.7-33.6) pg MCHC 32.2 (32.2-35.4) g/dL RDW 14.7 (11.5-15.5) % Plt Count 193 (125-369) X10(3)uL MPV 10.2 (7.4-10.4) fL Add Manual Diff Yes Neutrophils % (Manual) 86 H (46-82) % Lymphocytes % (Manual) 12 L (13-37) % Monocytes % (Manual) 2 L (4-12) % Sodium 140 (135-145) mmol/L Potassium 4.0 (3.5-5.3) mmol/L Chloride 101 D (100-110) mmol/L Carbon Dioxide 30 (21-32) mmol/L BUN 30 H (7-18) mg/dL Creatinine 1.4 H (0.55-1.02) mg/dL Est Cr Clr Drug Dosing 42.03 mL/min Estimated GFR (MDRD) 38 L (>60) BUN/Creatinine Ratio 21.4 H (9-20) Glucose 155 H (80-116) mg/dL Calcium 9.5 (8.6-10.2) mg/dL Troponin I (<0.017-0.056) ng/mL NT-Pro-B Natriuret Pep (<=125) pg/mL Free T4 Direct 1.08 (0.82-1.77) ng/dL 06/10/18 Range/Units 06:35 WBC (4.5-12.0) X10-3/uL RBC (3.23-5.20) x10(6)uL Hgb (11.5-15.5) g/dL Hct (30.0-51.3) % MCV (80-96) fL MCH (27.7-33.6) pg MCHC (32.2-35.4) g/dL RDW (11.5-15.5) % Plt Count (125-369) X10(3)uL MPV (7.4-10.4) fL Add Manual Diff Neutrophils % (Manual) (46-82) % Lymphocytes % (Manual) (13-37) % Monocytes % (Manual) (4-12) % Sodium (135-145) mmol/L Potassium (3.5-5.3) mmol/L Chloride (100-110) mmol/L Carbon Dioxide (21-32) mmol/L BUN (7-18) mg/dL Creatinine (0.55-1.02) mg/dL Est Cr Clr Drug Dosing mL/min Estimated GFR (MDRD) (>60) BUN/Creatinine Ratio (9-20) Glucose (80-116) mg/dL Calcium (8.6-10.2) mg/dL Troponin I < 0.017 L (<0.017-0.056) ng/mL NT-Pro-B Natriuret Pep 316 H (<=125) pg/mL Free T4 Direct (0.82-1.77) ng/dL Med Orders - Current: Current Medications Acetaminophen (Tylenol) 650 mg PO Q4H PRN PRN Reason: Headache Last Admin: 06/10/18 09:05 Dose: 650 mg Albuterol/Ipratropium (Duoneb 3.0-0.5 Mg/3 Ml) 3 ml NEB QIDRT [facility] Last Admin: 06/10/18 07:10 Dose: 3 ml Allopurinol (Zyloprim) 300 mg PO DAILY [facility] Last Admin: 06/10/18 08:22 Dose: 300 mg Amitriptyline HCl (Elavil) 50 mg PO BEDTIME [facility] Last Admin: 06/09/18 20:14 Dose: 50 mg Aspirin (Aspirin) 81 mg PO DAILY [facility] Last Admin: 06/10/18 08:21 Dose: 81 mg Buspirone HCl (Buspar) 15 mg PO BID [facility] Last Admin: 06/10/18 08:21 Dose: 15 mg Fluoxetine HCl (Prozac) 60 mg PO DAILY [facility] Last Admin: 06/10/18 08:22 Dose: 60 mg Furosemide (Lasix) 40 mg IVPUSH BIDDIURETIC [facility] Last Admin: 06/09/18 13:35 Dose: 40 mg Gabapentin (Neurontin) 400 mg PO BID [facility] Last Admin: 06/10/18 08:22 Dose: 400 mg Levetiracetam (Keppra) 1,000 mg PO BID [facility] Last Admin: 06/10/18 08:22 Dose: 1,000 mg Levothyroxine Sodium (Synthroid) 50 mcg PO DAILY@0600 [facility] Last Admin: 06/10/18 06:33 Dose: 50 mcg Lisinopril (Prinivil) 5 mg PO DAILY [facility] Last Admin: 06/10/18 08:21 Dose: 5 mg Methylprednisolone Sodium Succinate (Solu-Medrol) 125 mg IVPUSH Q8H [facility] Last Admin: 06/10/18 01:36 Dose: 125 mg Mirtazapine (Remeron) 30 mg PO BEDTIME [facility] Last Admin: 06/09/18 20:15 Dose: 30 mg Multivitamins (Thera) 1 each PO DAILY [facility] Last Admin: 06/10/18 08:21 Dose: 1 each Pantoprazole Sodium (Protonix) 40 mg PO DAILY@0600 [facility] Last Admin: 06/10/18 06:33 Dose: 40 mg Potassium Chloride (Klor-Con 10) 10 meq PO BID [facility] Last Admin: 06/10/18 08:22 Dose: 10 meq Propranolol HCl (Inderal La) 80 mg PO DAILY [facility] Last Admin: 06/10/18 08:22 Dose: 80 mg Ropinirole HCl (Requip) 2 mg PO BEDTIME [facility] Last Admin: 06/09/18 20:16 Dose: 2 mg Rosuvastatin Calcium (Crestor) 20 mg PO DAILY [facility] Last Admin: 06/10/18 08:23 Dose: 20 mg Sodium Chloride (Saline Flush) 10 ml FLUSH ASDIRECTED PRN PRN Reason: flush med Last Admin: 06/10/18 01:36 Dose: 10 ml Ticagrelor (Brilinta) 90 mg PO BID [facility] Last Admin: 06/10/18 08:22 Dose: 90 mg Discontinued Medications Acetaminophen (Tylenol) 650 mg PO Q4H PRN PRN Reason: Headache Acetaminophen (Tylenol) 650 mg PO Q4H PRN PRN Reason: Pain/Fever Acetaminophen (Tylenol) Confirm Administered Dose 650 mg .ROUTE .STK-MED ONE Stop: 06/09/18 22:19 Albuterol (Proventil Neb Soln) 2.5 mg NEB Q4H PRN PRN Reason: Shortness of Breath Allopurinol (Zyloprim) 300 mg PO DAILY [facility] Buspirone HCl (Buspar) 7.5 mg PO BEDTIME [facility] Last Admin: 06/09/18 00:10 Dose: Not Given Furosemide (Lasix) 40 mg IVPUSH NOW ONE Stop: 06/08/18 17:11 Last Admin: 06/08/18 17:20 Dose: 40 mg Furosemide (Lasix) 40 mg IVPUSH DAILY [facility] Gabapentin (Neurontin) 800 mg PO TID [facility] Last Admin: 06/09/18 00:10 Dose: Not Given Sodium Chloride (Normal Saline) 1,000 mls @ 200 mls/hr IV ASDIRECTED [facility] Iopamidol (Isovue-370 (76%)) 100 ml IV . DIRECTED ONE Stop: 06/08/18 18:24 Last Admin: 06/08/18 18:36 Dose: 83 ml Non-Formulary Medication (Fluoxetine Hcl [Fluoxetine Hcl]) 40 mg PO DAILY [facility] Ropinirole HCl (Requip) 2 mg PO BEDTIME [facility] Last Admin: 06/09/18 00:11 Dose: Not Given Ropinirole HCl (Requip) 2 mg PO ONETIME ONE Stop: 06/08/18 23:31 Last Admin: 06/08/18 23:18 Dose: 2 mg - Exam General: Alert, Oriented, Cooperative Lungs: Clear to Auscultation, Normal Respiratory Effort Cardiovascular: Regular Rate, Regular Rhythm, No Murmurs. No: Murmurs Extremities: Pedal Edema - Problem List & Annotations (1) CHF (congestive heart failure) SNOMED Code(s): 90657724 Code(s): I50.9 - HEART FAILURE, UNSPECIFIED Status: Acute Current Visit: Yes Qualifiers: Heart failure type: unspecified Heart failure chronicity: acute Qualified Code(s): I50.9 - Heart failure, unspecified - Problem List Review Problem List Initiated/Reviewed/Updated: Yes - My Orders Last 24 Hours: My Active Orders 06/09/18 13:35 Sodium Chloride 0.9% [Saline Flush] 10 ml FLUSH ASDIRECTED PRN - Plan Plan:: Discharged home after echo. Same medications. Patient states [facility] is coming to visit her.
[2018-06-10] MEDS: Furosemide 40 MG/4 ML VIAL IVPUSH SCH (10:24)
--- NOTE | 2018-06-10 18:25 | PCM.DCSUM1 ---
Discharge Summary - Hospital Course Free Text/Narrative:: Spoke course-patient was placed in the hospital and put on IV diuretics and Solu -Medrol. Patient did well and started breathing normally. She had no fevers, chills or cough. She'll leg swelling which improved. She says she is on 80 of Lasix once a day at home. She had echocardiogram today. Labs are reviewed. Be discharged home today. She had a good diuresis. Troponins 2 are negative. Brief History: Fior is a 62-year-old female who came in because of progressive shortness of breath. She had a stent on the right coronary in Feb, 2018, and since that time has been experiencing some shortness of breath. She got worse yesterday to the point where she could not complete a sentence without shortness of breath or walk even 1 or 2 steps. She also complained of excessive weight gain over 30 pounds in a few months, leg swelling ,cough and extreme fatigue. This was also associated with some chest tightness but no samuel chest pain. She has a history of stroke years ago, she is on seizure prophylaxis medication, has hyperlipidemia, obesity but denies any history of chronic lung disease. She quit smoking about 6 years ago. Diagnosis: Stroke: No - Discharge Data Discharge Date: 06/10/18 Discharge Disposition: Home, Self-Care 01 Condition: Good - Discharge Diagnosis/Problem(s) (1) CHF (congestive heart failure) SNOMED Code(s): 71440491 ICD Code: I50.9 - HEART FAILURE, UNSPECIFIED Status: Acute Qualifiers: Heart failure type: unspecified Heart failure chronicity: acute Qualified Code(s): I50.9 - Heart failure, unspecified - Patient Instructions Diet: Low Sodium Activity: As Tolerated Driving: May Drive Today Showering/Bathing: May Shower Notify Provider of: Swelling and Redness Other/Special Instructions: 1. Check Cherie Maurice in one week. 2. Daily wieghts. Patient is to call if her weight increases by 5 lbs. - Discharge Plan *PRESCRIPTION DRUG MONITORING PROGRAM REVIEWED*: No *COPY OF PRESCRIPTION DRUG MONITORING REPORT IN PATIENT JORJE: Not Applicable Prescriptions/Med Rec: predniSONE [Prednisone] 40 mg PO DAILY #14 tablet Home Medications: Home Meds Amitriptyline [Elavil] 50 mg PO BEDTIME 07/18/15 [History] Potassium Chloride [Klor-Con M20] 10 meq PO BID 05/04/15 [History] levETIRAcetam [Keppra] 1,000 mg PO BID 05/04/15 [History] rOPINIRole [Requip] 2 mg PO BEDTIME 05/04/15 [History] FLUoxetine [PROzac] 20 mg PO DAILY 05/30/15 [History] FLUoxetine HCl [Fluoxetine HCl] 40 mg PO DAILY 08/30/17 [History] Gabapentin [Neurontin] 400 mg PO BID 08/30/17 [History] Lisinopril 5 mg PO DAILY 08/30/17 [History] Mirtazapine 30 mg PO BEDTIME 08/30/17 [History] Multivitamin [Multivitamins] 1 each PO DAILY 08/30/17 [History] Albuterol [Ventolin HFA] 2 inhalation INH Q4H PRN 06/08/18 [History] Aspirin 81 mg PO DAILY 06/08/18 [History] Propranolol [Inderal LA] 80 mg PO DAILY 06/08/18 [History] Rosuvastatin [Crestor] 20 mg PO DAILY 06/08/18 [History] Ticagrelor [Brilinta] 90 mg BID 06/08/18 [History] busPIRone [Buspar] 15 mg PO BID 06/08/18 [History] Acetaminophen [Tylenol] 650 mg PO Q4H PRN 06/09/18 [History] Allopurinol [Zyloprim] 300 mg PO DAILY 06/09/18 [History] Furosemide [Lasix] 60 mg PO DAILY 06/09/18 [History] Methylcellulose (with Sugar) [Citrucel] 1 tbsp PO DAILY PRN 06/09/18 [History] Nitroglycerin [Nitrostat] 0.4 mg SL ASDIRECTED PRN 06/09/18 [History] Pantoprazole Sodium [Protonix] 40 mg PO DAILY@0600 06/09/18 [History] Sennosides/Docusate Sodium [Senna Plus Tablet] 1 tab PO DAILY PRN 06/09/18 [ History] predniSONE [Prednisone] 40 mg PO DAILY #14 tablet 06/10/18 [Rx] Patient Handouts: Heart Failure, [id number], Fall Prevention in Hospitals, Adult, Venous Thromboembolism Prevention Forms: ED Department Discharge Referrals: Cherie Maurice NP [Primary Care Provider] - - Discharge Summary/Plan Comment DC Time >30 min.: No - Patient Data Vitals - Most Recent: Last Vital Signs Temp 97.6 F 06/10/18 08:00 Pulse 75 06/10/18 08:00 Resp 20 06/10/18 08:00 BP 126/78 06/10/18 08:21 Pulse Ox 92 L 06/10/18 08:00 Weight - Most Recent: 338 lb 3.2 oz I&O - Last 24 hours: Intake & Output 06/10/18 06/10/18 06/10/18 06:59 14:59 22:59 Intake Total 300 Output Total 300 Balance 0 Lab Results - Last 24 hrs: Laboratory Results - last 24 hr 06/08/18 06/10/18 06/10/18 Range/Units 18:50 06:35 06:35 WBC 8.4 (4.5-12.0) X10-3/uL RBC 4.09 (3.23-5.20) x10(6)uL Hgb 12.2 (11.5-15.5) g/dL Hct 38.0 (30.0-51.3) % MCV 92.8 (80-96) fL MCH 29.9 (27.7-33.6) pg MCHC 32.2 (32.2-35.4) g/dL RDW 14.7 (11.5-15.5) % Plt Count 193 (125-369) X10(3)uL MPV 10.2 (7.4-10.4) fL Add Manual Diff Yes Neutrophils % (Manual) 86 H (46-82) % Lymphocytes % (Manual) 12 L (13-37) % Monocytes % (Manual) 2 L (4-12) % Sodium 140 (135-145) mmol/L Potassium 4.0 (3.5-5.3) mmol/L Chloride 101 D (100-110) mmol/L Carbon Dioxide 30 (21-32) mmol/L BUN 30 H (7-18) mg/dL Creatinine 1.4 H (0.55-1.02) mg/dL Est Cr Clr Drug Dosing 42.03 mL/min Estimated GFR (MDRD) 38 L (>60) BUN/Creatinine Ratio 21.4 H (9-20) Glucose 155 H (80-116) mg/dL Calcium 9.5 (8.6-10.2) mg/dL Troponin I (<0.017-0.056) ng/mL NT-Pro-B Natriuret Pep (<=125) pg/mL Free T4 Direct 1.08 (0.82-1.77) ng/dL 06/10/18 Range/Units 06:35 WBC (4.5-12.0) X10-3/uL RBC (3.23-5.20) x10(6)uL Hgb (11.5-15.5) g/dL Hct (30.0-51.3) % MCV (80-96) fL MCH (27.7-33.6) pg MCHC (32.2-35.4) g/dL RDW (11.5-15.5) % Plt Count (125-369) X10(3)uL MPV (7.4-10.4) fL Add Manual Diff Neutrophils % (Manual) (46-82) % Lymphocytes % (Manual) (13-37) % Monocytes % (Manual) (4-12) % Sodium (135-145) mmol/L Potassium (3.5-5.3) mmol/L Chloride (100-110) mmol/L Carbon Dioxide (21-32) mmol/L BUN (7-18) mg/dL Creatinine (0.55-1.02) mg/dL Est Cr Clr Drug Dosing mL/min Estimated GFR (MDRD) (>60) BUN/Creatinine Ratio (9-20) Glucose (80-116) mg/dL Calcium (8.6-10.2) mg/dL Troponin I < 0.017 L (<0.017-0.056) ng/mL NT-Pro-B Natriuret Pep 316 H (<=125) pg/mL Free T4 Direct (0.82-1.77) ng/dL Med Orders - Current: Current Medications Discontinued Medications Acetaminophen (Tylenol) 650 mg PO Q4H PRN PRN Reason: Headache Acetaminophen (Tylenol) 650 mg PO Q4H PRN PRN Reason: Pain/Fever Acetaminophen (Tylenol) 650 mg PO Q4H PRN PRN Reason: Headache Last Admin: 06/10/18 09:05 Dose: 650 mg Acetaminophen (Tylenol) Confirm Administered Dose 650 mg .ROUTE .STK-MED ONE Stop: 06/09/18 22:19 Albuterol (Proventil Neb Soln) 2.5 mg NEB Q4H PRN PRN Reason: Shortness of Breath Albuterol/Ipratropium (Duoneb 3.0-0.5 Mg/3 Ml) 3 ml NEB QIDRT [facility] Last Admin: 06/10/18 07:10 Dose: 3 ml Allopurinol (Zyloprim) 300 mg PO DAILY [facility] Allopurinol (Zyloprim) 300 mg PO DAILY [facility] Last Admin: 06/10/18 08:22 Dose: 300 mg Amitriptyline HCl (Elavil) 50 mg PO BEDTIME [facility] Last Admin: 06/09/18 20:14 Dose: 50 mg Aspirin (Aspirin) 81 mg PO DAILY [facility] Last Admin: 06/10/18 08:21 Dose: 81 mg Buspirone HCl (Buspar) 7.5 mg PO BEDTIME [facility] Last Admin: 06/09/18 00:10 Dose: Not Given Buspirone HCl (Buspar) 15 mg PO BID [facility] Last Admin: 06/10/18 08:21 Dose: 15 mg Fluoxetine HCl (Prozac) 60 mg PO DAILY [facility] Last Admin: 06/10/18 08:22 Dose: 60 mg Furosemide (Lasix) 40 mg IVPUSH NOW ONE Stop: 06/08/18 17:11 Last Admin: 06/08/18 17:20 Dose: 40 mg Furosemide (Lasix) 40 mg IVPUSH DAILY [facility] Furosemide (Lasix) 40 mg IVPUSH BIDDIURETIC [facility] Last Admin: 06/10/18 10:24 Dose: 40 mg Gabapentin (Neurontin) 800 mg PO TID [facility] Last Admin: 06/09/18 00:10 Dose: Not Given Gabapentin (Neurontin) 400 mg PO BID [facility] Last Admin: 06/10/18 08:22 Dose: 400 mg Sodium Chloride (Normal Saline) 1,000 mls @ 200 mls/hr IV ASDIRECTED [facility] Iopamidol (Isovue-370 (76%)) 100 ml IV . DIRECTED ONE Stop: 06/08/18 18:24 Last Admin: 06/08/18 18:36 Dose: 83 ml Levetiracetam (Keppra) 1,000 mg PO BID [facility] Last Admin: 06/10/18 08:22 Dose: 1,000 mg Levothyroxine Sodium (Synthroid) 50 mcg PO DAILY@0600 [facility] Last Admin: 06/10/18 06:33 Dose: 50 mcg Lisinopril (Prinivil) 5 mg PO DAILY [facility] Last Admin: 06/10/18 08:21 Dose: 5 mg Methylprednisolone Sodium Succinate (Solu-Medrol) 125 mg IVPUSH Q8H [facility] Last Admin: 06/10/18 10:24 Dose: 125 mg Mirtazapine (Remeron) 30 mg PO BEDTIME [facility] Last Admin: 06/09/18 20:15 Dose: 30 mg Multivitamins (Thera) 1 each PO DAILY [facility] Last Admin: 06/10/18 08:21 Dose: 1 each Non-Formulary Medication (Fluoxetine Hcl [Fluoxetine Hcl]) 40 mg PO DAILY [facility] Pantoprazole Sodium (Protonix) 40 mg PO DAILY@0600 [facility] Last Admin: 06/10/18 06:33 Dose: 40 mg Potassium Chloride (Klor-Con 10) 10 meq PO BID [facility] Last Admin: 06/10/18 08:22 Dose: 10 meq Propranolol HCl (Inderal La) 80 mg PO DAILY [facility] Last Admin: 06/10/18 08:22 Dose: 80 mg Ropinirole HCl (Requip) 2 mg PO BEDTIME [facility] Last Admin: 06/09/18 00:11 Dose: Not Given Ropinirole HCl (Requip) 2 mg PO BEDTIME [facility] Last Admin: 06/09/18 20:16 Dose: 2 mg Ropinirole HCl (Requip) 2 mg PO ONETIME ONE Stop: 06/08/18 23:31 Last Admin: 06/08/18 23:18 Dose: 2 mg Rosuvastatin Calcium (Crestor) 20 mg PO DAILY [facility] Last Admin: 06/10/18 08:23 Dose: 20 mg Sodium Chloride (Saline Flush) 10 ml FLUSH ASDIRECTED PRN PRN Reason: flush med Last Admin: 06/10/18 10:25 Dose: 10 ml Ticagrelor (Brilinta) 90 mg PO BID [facility] Last Admin: 06/10/18 08:22 Dose: 90 mg
== END 2018-06-10 10:45 | disposition home or self-care (01) | DRG 292 ==
LOC: FB.ED 16:52 → FB.MS 19:18
PROVIDERS: ADMIT Emergency Medicine; ATTEND Family Medicine
DX: I11.0 Hypertensive heart disease with heart failure (principal); Z68.43 Body mass index [BMI] 50.0-59.9, adult; I50.9 Heart failure, unspecified; J44.9 Chronic obstructive pulmonary disease, unspecified; I25.10 Atherosclerotic heart disease of native coronary artery without angina pectoris; E66.01 Morbid (severe) obesity due to excess calories; F41.9 Anxiety disorder, unspecified; E66.9 Obesity, unspecified; F32.9 Major depressive disorder, single episode, unspecified; E03.9 Hypothyroidism, unspecified; K59.09 Other constipation; M19.90 Unspecified osteoarthritis, unspecified site; M10.9 Gout, unspecified; I25.2 Old myocardial infarction; Z88.7 Allergy status to serum and vaccine; Z87.01 Personal history of pneumonia (recurrent); R06.00 Dyspnea, unspecified; R60.9 Edema, unspecified; Z87.440 Personal history of urinary (tract) infections; R63.5 Abnormal weight gain; I72.9 Aneurysm of unspecified site; R53.1 Weakness; R06.02 Shortness of breath; Z79.899 Other long term (current) drug therapy; Z86.73 Personal history of transient ischemic attack (TIA), and cerebral infarction without residual deficits; Z95.5 Presence of coronary angioplasty implant and graft; R56.9 Unspecified convulsions; E78.5 Hyperlipidemia, unspecified; Z87.891 Personal history of nicotine dependence
CPT/HCPCS: 36415; 71045; 71275; 80048; 80053; 81001; 82803; 83735; 83880; 84439; 84443; 84484; 85025; 85379; 85610; 93005; 93306; 94150; 94640; 96374; 99285; A9270-GY; J1940; J2930; J7050; J7620-GY; Q9967

== ENCOUNTER 2018-12-12 16:03 | Emergency (ER) | payer MEDICARE, MEDICAID ==
--- NOTE | 2018-12-12 15:20 | EDM.PDOC ---
ED HPI GENERAL MEDICAL PROBLEM - General Chief Complaint: Respiratory Problem Stated Complaint: RESP DISTRESS Time Seen by Provider: 12/12/18 12:09 Source of Information: Reports: Patient, EMS, Family History Limitations: Reports: Physical Impairment - History of Present Illness INITIAL COMMENTS - FREE TEXT/NARRATIVE: 63 y.o.w.f -morbid obese- came by EMS with her childcare worker to the Ed because of SOB, she is on 2 liters o2 at home and had to to upgrade it to 3-4 liters. No C/ P pt has a sedentary lives style and has a childcare worker who is making her daily meals. Pt does not do any physical activity. Pt was seen for same a few weeks ago in this ED for same. She did not undergo a sleep study in niko past. No N/V/ D no dizziness. She is able to ambulate short distances only because of SOB. No other acute medical issues. BP 121/75 RR 18 Pulse ox 100% on 2 liters O2 by NC, pt's baseline Pulse 67 Temp 36.6 Onset Date: 12/01/18 Onset Time: 21:00 Duration: Day(s):, Week(s):, Chronic, Getting Worse, Intermittent Location: Reports: Chest - Related Data Allergies Allergy/AdvReac Type Severity Reaction Status Date / Time tetanus and diphtheria Allergy Hives Verified 12/12/18 15:11 toxoids [tetanus & diphtheria toxoids] Home Meds: Home Meds Potassium Chloride [Klor-Con M20] 10 meq PO BID 05/04/15 [History] levETIRAcetam [Keppra] 1,000 mg PO BID 05/04/15 [History] rOPINIRole [Requip] 2 mg PO BEDTIME 05/04/15 [History] FLUoxetine [PROzac] 20 mg PO DAILY 05/30/15 [History] FLUoxetine HCl [Fluoxetine HCl] 40 mg PO DAILY 08/30/17 [History] Gabapentin [Neurontin] 400 mg PO BID 08/30/17 [History] Lisinopril 5 mg PO DAILY 08/30/17 [History] Mirtazapine 30 mg PO BEDTIME 08/30/17 [History] Multivitamin [Multivitamins] 1 each PO DAILY 08/30/17 [History] Albuterol [Ventolin HFA] 2 inhalation INH Q4H PRN 06/08/18 [History] Aspirin 81 mg PO DAILY 06/08/18 [History] Propranolol [Inderal LA] 80 mg PO DAILY 06/08/18 [History] Rosuvastatin [Crestor] 20 mg PO DAILY 06/08/18 [History] Ticagrelor [Brilinta] 90 mg PO BID 06/08/18 [History] busPIRone [Buspar] 15 mg PO BID 06/08/18 [History] Acetaminophen [Tylenol] 650 mg PO Q4H PRN 06/09/18 [History] Allopurinol [Zyloprim] 300 mg PO DAILY 06/09/18 [History] Furosemide [Lasix] 40 mg PO DAILY 06/09/18 [History] Methylcellulose (with Sugar) [Citrucel] 1 tbsp PO DAILY PRN 06/09/18 [History] Nitroglycerin [Nitrostat] 0.4 mg SL ASDIRECTED PRN 06/09/18 [History] Pantoprazole Sodium [Protonix] 40 mg PO DAILY@0600 06/09/18 [History] Sennosides/Docusate Sodium [Senna Plus Tablet] 1 tab PO DAILY PRN 06/09/18 [ History] Budesonide/Formoterol Fumarate [Symbicort 80-4.5 Mcg Inhaler] 2 inh INH BID [History] Budesonide/Formoterol [Symbicort 80-4.5 MCG] 1 puff INH BID PRN #1 inhaler 12/12 [Rx] Past Medical History HEENT History: Reports: None Cardiovascular History: Reports: Aneurysm, Hypertension, [place], SOB on Exertion, Other (See Below) Other Cardiovascular History: has had many strokes, L sided weakness (arm) Respiratory History: Reports: Pneumonia, Recurrent, SOB Gastrointestinal History: Reports: Chronic Constipation, Hemorrhoids Genitourinary History: Reports: None, UTI, Recurrent GRIEVANCE MANAGER History: Reports: , Other (See Below) Other GRIEVANCE MANAGER History: Musculoskeletal History: Reports: Arthritis, Fracture, Gout Other Musculoskeletal History: hx fx R foot Neurological History: Reports: CVA, Seizure, Other (See Below) Other Neuro History: has had numerous cva's in pasr, L sided weakness arm and leg Psychiatric History: Reports: Anxiety, Depression, Eating Disorders, Emotional Problems, Panic Attack Endocrine/Metabolic History: Reports: Obesity/BMI 30+ Hematologic History: Reports: None Immunologic History: Reports: None Oncologic (Cancer) History: Reports: None Dermatologic History: Reports: None, Other (See Below) Other Dermatologic History: redness both sides of abdominal folds, bilateral groin areas, under left breast - Infectious Disease History Infectious Disease History: Reports: Chicken Pox, Measles, Mumps - Past Surgical History Head Surgeries/Procedures: Reports: None HEENT Surgical History: Reports: Adenoidectomy, Oral Surgery, Tonsillectomy, Other (See Below) Other HEENT Surgeries/Procedures: all of teeth pulled Cardiovascular Surgical History: Reports: Percutaneous Transluminal Angioplasty Respiratory Surgical History: Reports: None GI Surgical History: Reports: EGD Female Surgical History: Reports: None Endocrine Surgical History: Reports: None Neurological Surgical History: Reports: None Musculoskeletal Surgical History: Reports: Other (See Below) Other Musculoskeletal Surgeries/Procedures:: very weak, has right ankle fx and 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 Oncologic Surgical History: Reports: None Dermatological Surgical History: Reports: None Social & Family History - Family History Family Medical History: Noncontributory - Caffeine Use Caffeine Use: Reports: Soda Other Caffeine Use: mountain dew - Living Situation & Occupation Living situation: Reports: Single Occupation: Unemployed ED ROS GENERAL - Review of Systems Review Of Systems: See Below Constitutional: Reports: Weakness, Weight Gain HEENT: Reports: No Symptoms Respiratory: Reports: Shortness of Breath Cardiovascular: Reports: Chest Pain Endocrine: Reports: No Symptoms GI/Abdominal: Reports: No Symptoms : Reports: No Symptoms Musculoskeletal: Reports: No Symptoms Skin: Reports: No Symptoms Neurological: Reports: No Symptoms Psychiatric: Reports: No Symptoms Hematologic/Lymphatic: Reports: No Symptoms Immunologic: Reports: No Symptoms ED EXAM, GENERAL - Physical Exam Exam: See Below Exam Limited By: Physical Impairment General Appearance: Alert, Mild Distress Eye Exam: Bilateral Eye: Normal Inspection Ears: Normal External Exam Ear Exam: Bilateral Ear: Auricle Normal Nose: Normal Inspection, Normal Mucosa, No Blood Throat/Mouth: Normal Lips, Normal Voice, No Airway Compromise Head: Atraumatic, Normocephalic Neck: Normal Inspection, Supple, Non-Tender Respiratory/Chest: Lungs Clear, Normal Breath Sounds, Decreased Breath Sounds Cardiovascular: Normal Peripheral Pulses, Regular Rate, Rhythm, No Edema, No Gallop Peripheral Pulses: 2+: Radial (L) GI/Abdominal: Normal Bowel Sounds, Soft, Non-Tender, No Organomegaly (Female) Exam: Deferred Rectal (Female) Exam: Deferred Back Exam: Normal Inspection Extremities: Normal Inspection, Normal Range of Motion Neurological: Alert, Oriented, CN II-XII Intact, Normal Cognition, Normal Gait Psychiatric: Normal Affect, Normal Mood Skin Exam: Warm, Dry, Intact Lymphatic: No Adenopathy Course - Vital Signs Text/Narrative:: 63 y.o.w.f -morbid obese- came by EMS with her childcare worker to the Ed because of SOB, she is on 2 liters o2 at home and had to to upgrade it to 3-4 liters. No C/ P pt has a sedentary lives style and has a childcare worker who is making her daily meals. Pt does not do any physical activity. Pt was seen for same a few weeks ago in this ED for same. She did not undergo a sleep study in niko past. No N/V/ D no dizziness. She is able to ambulate short distances only because of SOB. No other acute medical issues. BP 121/75 RR 18 Pulse ox 100% on 2 liters O2 by NC, pt's baseline Pulse 67 Temp 36.6 PE: Morbid obese->360lbs- 63 Y.O . w f with SOB on exertion Imaging: Angio CT Neg for acute PE, poor study du to anatomy op patient. Labs: CBC nl D Dimer 0.85 BUN 28 Cr. 1.4 GFR 44 VBG: pH 7.36 Venous BIOCARB 31.3 VpCO2 56 Impression: Morbid obesity, Poss sleep apnea, Tx: none. prescribed for Symbicort inhaler, Reexam: Improved, pt has a breathing machine at home including Albuterol solutions Plan: D/C with instruction Last Recorded V/S: Last Vital Signs Temp 36.6 C 12/12/18 15:13 Pulse 67 12/12/18 15:13 Resp 18 12/12/18 15:13 BP 121/75 12/12/18 15:13 Pulse Ox 100 12/12/18 15:13 - Orders/Labs/Meds Orders: Active Orders 24 hr Category Date Time Status Ang Chest [CT] Stat Exams 12/12/18 17:10 Taken CXR [Chest 1V Frontal] [CR] Stat Exams 12/12/18 15:14 Taken Labs: Laboratory Tests 12/12/18 12/12/18 12/12/18 Range/Units 15:10 15:10 15:10 WBC 8.7 (4.5-12.0) X10-3/uL RBC 3.99 (3.23-5.20) x10(6)uL Hgb 11.9 (11.5-15.5) g/dL Hct 36.8 (30.0-51.3) % MCV 92.1 (80-96) fL MCH 29.9 (27.7-33.6) pg MCHC 32.4 (32.2-35.4) g/dL RDW 15.3 (11.5-15.5) % Plt Count 168 (125-369) X10(3)uL MPV 9.9 (7.4-10.4) fL Neut % (Auto) 77.4 (46-82) % Lymph % (Auto) 14.8 (13-37) % [place] % (Auto) 5.1 (4-12) % Eos % (Auto) 2 (1.0-5.0) % Baso % (Auto) 1 (0-2) % Neut # (Auto) 6.8 (1.6-8.3) # Lymph # (Auto) 1.3 (0.6-5.0) # [place] # (Auto) 0.4 (0.0-1.3) # Eos # (Auto) 0.2 (0.0-0.8) # Baso # (Auto) 0.0 (0.0-0.2) # PT 9.5 (8.7-11.1) INR 0.98 (0.89-1.13) D-Dimer, Quantitative 0.85 H (0.0-0.59) mg/LFEU POC VBG pH (7.31-7.41) POC VBG pCO2 (41-51) mmHG POC VBG HCO3 (23-28) mmol/L POC VBG Total CO2 (24-29) mmol/L POC VBG Base Excess (-2-3) mmol/L Sodium 142 (135-145) mmol/L Potassium 4.3 (3.5-5.3) mmol/L Chloride 105 (100-110) mmol/L Carbon Dioxide 30 (21-32) mmol/L BUN 28 H (7-18) mg/dL Creatinine 1.3 H (0.55-1.02) mg/dL Est Cr Clr Drug Dosing 44.68 mL/min Estimated GFR (MDRD) 41 L (>60) BUN/Creatinine Ratio 21.5 H (9-20) Glucose 105 (80-116) mg/dL Calcium 9.2 (8.6-10.2) mg/dL 12/12/18 Range/Units 17:16 WBC (4.5-12.0) X10-3/uL RBC (3.23-5.20) x10(6)uL Hgb (11.5-15.5) g/dL Hct (30.0-51.3) % MCV (80-96) fL MCH (27.7-33.6) pg MCHC (32.2-35.4) g/dL RDW (11.5-15.5) % Plt Count (125-369) X10(3)uL MPV (7.4-10.4) fL Neut % (Auto) (46-82) % Lymph % (Auto) (13-37) % [place] % (Auto) (4-12) % Eos % (Auto) (1.0-5.0) % Baso % (Auto) (0-2) % Neut # (Auto) (1.6-8.3) # Lymph # (Auto) (0.6-5.0) # [place] # (Auto) (0.0-1.3) # Eos # (Auto) (0.0-0.8) # Baso # (Auto) (0.0-0.2) # PT (8.7-11.1) INR (0.89-1.13) D-Dimer, Quantitative (0.0-0.59) mg/LFEU POC VBG pH 7.36 (7.31-7.41) POC VBG pCO2 56.0 H (41-51) mmHG POC VBG HCO3 31.4 H (23-28) mmol/L POC VBG Total CO2 33 H (24-29) mmol/L POC VBG Base Excess 6 H (-2-3) mmol/L Sodium (135-145) mmol/L Potassium (3.5-5.3) mmol/L Chloride (100-110) mmol/L Carbon Dioxide (21-32) mmol/L BUN (7-18) mg/dL Creatinine (0.55-1.02) mg/dL Est Cr Clr Drug Dosing mL/min Estimated GFR (MDRD) (>60) BUN/Creatinine Ratio (9-20) Glucose (80-116) mg/dL Calcium (8.6-10.2) mg/dL Meds: Medications Discontinued Medications Generic Name Dose Route Start Last Admin Trade Name Freq PRN Reason Stop Dose Admin Iopamidol 83 ml 12/12/18 17:22 12/12/18 18:13 Isovue-370 (76%) IV 12/12/18 17:23 83 ml . DIRECTED ONE Administration Departure - Departure Time of Disposition: 19:08 Disposition: Home, Self-Care 01 Condition: Good Clinical Impression: Morbid obesity with BMI of 50.0-59.9, adult, Sleep apnea syndrome - Discharge Information Prescriptions: Budesonide/Formoterol [Symbicort 80-4.5 MCG] 1 puff INH BID PRN #1 inhaler PRN Reason: sob Instructions: Sleep Apnea Referrals: Cherie Maurice NP [Primary Care Provider] - Forms: ED Department Discharge Additional Instructions: Please call your PMD to be scheduled for a sleep study a.s.a.p.Please use your breathing machine every 4 hours while a wake for next 2-3 days. Please f/u with your PMD, come back if your symptoms get worse acutely - My Orders Last 24 Hours: My Active Orders 12/12/18 15:14 CXR [Chest 1V Frontal] [CR] Stat 12/12/18 17:10 Ang Chest [CT] Stat - Assessment/Plan Last 24 Hours: My Active Orders 12/12/18 15:14 CXR [Chest 1V Frontal] [CR] Stat 12/12/18 17:10 Ang Chest [CT] Stat
[2018-12-12 15:23] VITALS: BP 121/75
[2018-12-12] MEDS ORDERED: Lidocaine 1% PF 2 ML SDV INJECT ONE (16:04)
[2018-12-12] MEDS ORDERED: Iopamidol 755 Mg/ML 100 ML Bottle IV ONE (17:22)
--- NOTE | 2018-12-12 17:58 | PCM.SN ---
- Free Text/Narrative Note: ANESTHESIA 12/12/2018 Time: 1740 to 1750 RE: Poor Vascular Access I was called to Trauma 2 for peripheral venous access on a super morbid patient requiring a VQ scan. She took her Plavix today. I found a vein on her right anterior forearm and infiltrated the insertion site with .5 ml of 1% Lidocaine plain. I reprepped the site with several alcohol wipes and proceeded to insert a 20 G IV X 1 attempt. It flushed easily and a lock was applied plus an Op-Site dressing. She tolerated this well. Melvin Hoskins CRNA, JOAQUIM.
== END 2018-12-12 19:30 | disposition home or self-care (01) ==
LOC: FB.ED 16:03
DX: G47.30 Sleep apnea, unspecified (principal); E66.01 Morbid (severe) obesity due to excess calories; I10 Essential (primary) hypertension; I25.2 Old myocardial infarction; Z68.43 Body mass index [BMI] 50.0-59.9, adult; Z88.7 Allergy status to serum and vaccine; Z79.82 Long term (current) use of aspirin; Z79.899 Other long term (current) drug therapy; Z87.01 Personal history of pneumonia (recurrent); Z86.73 Personal history of transient ischemic attack (TIA), and cerebral infarction without residual deficits
CPT/HCPCS: 36410; 36415; 71045; 71275; 80048; 82803; 85025; 85379; 85610; 99285; J2001; Q9967

== ENCOUNTER 2018-12-31 21:08 | Emergency (ER) | payer MEDICARE, MEDICAID ==
[2018-12-31] MEDS ORDERED: Ondansetron 4 MG Tab.DIS PO ONE (21:09)
[2018-12-31] MEDS ORDERED: Sodium Chloride 0.9% 10 ML Syringe FLUSH PRN (21:42)
[2018-12-31] MEDS ORDERED: Ondansetron 4 MG/2 ML SDV IVPUSH ONE (21:42)
[2018-12-31] MEDS ORDERED: Sodium Chloride 0.9% 1,000 ML IV SCH (21:45)
--- NOTE | 2018-12-31 23:34 | EDM.PDOC ---
ED HPI GENERAL MEDICAL PROBLEM - General Chief Complaint: Gastrointestinal Problem Stated Complaint: VOMITING Time Seen by Provider: 12/31/18 22:20 Source of Information: Reports: Patient, Family History Limitations: Reports: No Limitations - History of Present Illness INITIAL COMMENTS - FREE TEXT/NARRATIVE: Roberto Carlos was brought in because of dry heaving;decreased appetite ;black stools - and symptoms have gone for 2-3 days. The caregivers especially worried because not able to eat well for 2 days.In addition she's had some cough and maybe wheezing but denies any chest pain or shortness of breath. She has an extensive past medical history well-documented Epic. I spoke with the partner and caregivers. This been no fever - Related Data Allergies Allergy/AdvReac Type Severity Reaction Status Date / Time tetanus and diphtheria Allergy Hives Verified 12/12/18 15:11 toxoids [tetanus & diphtheria toxoids] Home Meds: Home Meds Potassium Chloride [Klor-Con M20] 10 meq PO BID 05/04/15 [History] levETIRAcetam [Keppra] 1,000 mg PO BID 05/04/15 [History] rOPINIRole [Requip] 2 mg PO BEDTIME 05/04/15 [History] FLUoxetine [PROzac] 20 mg PO DAILY 05/30/15 [History] FLUoxetine HCl [Fluoxetine HCl] 40 mg PO DAILY 08/30/17 [History] Gabapentin [Neurontin] 400 mg PO BID 08/30/17 [History] Lisinopril 5 mg PO DAILY 08/30/17 [History] Mirtazapine 30 mg PO BEDTIME 08/30/17 [History] Multivitamin [Multivitamins] 1 each PO DAILY 08/30/17 [History] Albuterol [Ventolin HFA] 2 inhalation INH Q4H PRN 06/08/18 [History] Aspirin 81 mg PO DAILY 06/08/18 [History] Propranolol [Inderal LA] 80 mg PO DAILY 06/08/18 [History] Rosuvastatin [Crestor] 20 mg PO DAILY 06/08/18 [History] Ticagrelor [Brilinta] 90 mg PO BID 06/08/18 [History] busPIRone [Buspar] 15 mg PO BID 06/08/18 [History] Acetaminophen [Tylenol] 650 mg PO Q4H PRN 06/09/18 [History] Allopurinol [Zyloprim] 300 mg PO DAILY 06/09/18 [History] Furosemide [Lasix] 40 mg PO DAILY 06/09/18 [History] Methylcellulose (with Sugar) [Citrucel] 1 tbsp PO DAILY PRN 06/09/18 [History] Nitroglycerin [Nitrostat] 0.4 mg SL ASDIRECTED PRN 06/09/18 [History] Pantoprazole Sodium [Protonix] 40 mg PO DAILY@0600 06/09/18 [History] Sennosides/Docusate Sodium [Senna Plus Tablet] 1 tab PO DAILY PRN 06/09/18 [ History] Budesonide/Formoterol Fumarate [Symbicort 80-4.5 Mcg Inhaler] 2 inh INH BID [History] Budesonide/Formoterol [Symbicort 80-4.5 MCG] 1 puff INH BID PRN #1 inhaler 12/12 [Rx] Past Medical History HEENT History: Reports: None Cardiovascular History: Reports: Aneurysm, Hypertension, [place], SOB on Exertion, Other (See Below) Other Cardiovascular History: has had many strokes, L sided weakness (arm) Respiratory History: Reports: Pneumonia, Recurrent, SOB Gastrointestinal History: Reports: Chronic Constipation, Hemorrhoids Genitourinary History: Reports: None, UTI, Recurrent FIBERLINE SUPERVISOR History: Reports: , Other (See Below) Other FIBERLINE SUPERVISOR History: Musculoskeletal History: Reports: Arthritis, Fracture, Gout Other Musculoskeletal History: hx fx R foot Neurological History: Reports: CVA, Seizure, Other (See Below) Other Neuro History: has had numerous cva's in pasr, L sided weakness arm and leg Psychiatric History: Reports: Anxiety, Depression, Eating Disorders, Emotional Problems, Panic Attack Endocrine/Metabolic History: Reports: Obesity/BMI 30+ Hematologic History: Reports: None Immunologic History: Reports: None Oncologic (Cancer) History: Reports: None Dermatologic History: Reports: None, Other (See Below) Other Dermatologic History: redness both sides of abdominal folds, bilateral groin areas, under left breast - Infectious Disease History Infectious Disease History: Reports: Chicken Pox, Measles, Mumps - Past Surgical History Head Surgeries/Procedures: Reports: None HEENT Surgical History: Reports: Adenoidectomy, Oral Surgery, Tonsillectomy, Other (See Below) Other HEENT Surgeries/Procedures: all of teeth pulled Cardiovascular Surgical History: Reports: Percutaneous Transluminal Angioplasty Respiratory Surgical History: Reports: None GI Surgical History: Reports: EGD Female Surgical History: Reports: None Endocrine Surgical History: Reports: None Neurological Surgical History: Reports: None Musculoskeletal Surgical History: Reports: Other (See Below) Other Musculoskeletal Surgeries/Procedures:: very weak, has right ankle fx and 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 Oncologic Surgical History: Reports: None Dermatological Surgical History: Reports: None Social & Family History - Family History Family Medical History: Noncontributory - Caffeine Use Caffeine Use: Reports: Soda Other Caffeine Use: mountain dew - Living Situation & Occupation Living situation: Reports: Single Occupation: Unemployed ED ROS GENERAL - Review of Systems Review Of Systems: ROS reveals no pertinent complaints other than HPI. ED EXAM, GI/ABD - Physical Exam Exam: See Below Exam Limited By: No Limitations General Appearance: Alert, WD/WN Ears: Normal External Exam Nose: Normal Inspection Throat/Mouth: Normal Inspection Head: Atraumatic Respiratory/Chest: No Respiratory Distress, Lungs Clear Cardiovascular: Normal Peripheral Pulses GI/Abdominal Exam: Normal Bowel Sounds, Soft, Non-Tender, No Organomegaly EKG INTERPRETATION EKG Date: 12/31/18 Course - Orders/Labs/Meds Orders: Active Orders 24 hr Category Date Time Status EKG Documentation Completion [RC] ASDIRECTED Care 12/31/18 21:42 Active Chest 1V Frontal [CR] Stat Exams 12/31/18 21:42 Taken Sodium Chloride 0.9% [Normal Saline] 1,000 ml Med 12/31/18 21:45 Active IV ASDIRECTED Sodium Chloride 0.9% [Saline Flush] Med 12/31/18 21:42 Active 10 ml FLUSH ASDIRECTED PRN Peripheral IV Insertion Adult [OM.PC] Routine Oth 12/31/18 21:42 Ordered EKG 12 Lead [EK] Routine Ther 12/31/18 21:42 Ordered Medication Orders Sodium Chloride (Normal Saline) 1,000 mls @ 500 mls/hr IV ASDIRECTED KOSTA Last Admin: 12/31/18 22:19 Dose: 500 mls/hr Sodium Chloride (Saline Flush) 10 ml FLUSH ASDIRECTED PRN PRN Reason: Keep Vein Open Last Admin: 12/31/18 22:59 Dose: 10 ml Labs: Laboratory Tests 12/31/18 12/31/18 12/31/18 Range/Units 21:53 21:53 21:53 WBC 6.9 (4.5-12.0) X10-3/uL RBC 3.99 (3.23-5.20) x10(6)uL Hgb 11.6 (11.5-15.5) g/dL Hct 36.5 (30.0-51.3) % MCV 91.5 (80-96) fL MCH 29.0 (27.7-33.6) pg MCHC 31.7 L (32.2-35.4) g/dL RDW 15.1 (11.5-15.5) % Plt Count 171 (125-369) X10(3)uL MPV 10.5 H (7.4-10.4) fL Neut % (Auto) 74.4 (46-82) % Lymph % (Auto) 19.0 (13-37) % [place] % (Auto) 4.8 (4-12) % Eos % (Auto) 1 (1.0-5.0) % Baso % (Auto) 1 (0-2) % Neut # (Auto) 5.2 (1.6-8.3) # Lymph # (Auto) 1.3 (0.6-5.0) # [place] # (Auto) 0.3 (0.0-1.3) # Eos # (Auto) 0.1 (0.0-0.8) # Baso # (Auto) 0.0 (0.0-0.2) # Sodium 143 (135-145) mmol/L Potassium 4.2 (3.5-5.3) mmol/L Chloride 106 (100-110) mmol/L Carbon Dioxide 30 (21-32) mmol/L BUN 13 D (7-18) mg/dL Creatinine 1.1 H (0.55-1.02) mg/dL Est Cr Clr Drug Dosing TNP Estimated GFR (MDRD) 50 L (>60) BUN/Creatinine Ratio 11.8 (9-20) Glucose 118 H (80-116) mg/dL Calcium 9.2 (8.6-10.2) mg/dL Total Bilirubin 0.2 (0.1-1.3) mg/dL AST 14 D (5-25) IU/L ALT 14 D (12-36) U/L Alkaline Phosphatase 88 (56-112) IU/L Troponin I < 0.017 L (<0.017-0.056) ng/mL Total Protein 6.5 (6.0-8.0) g/dL Albumin 2.9 L (3.2-4.6) g/dL Globulin 3.6 g/dL Albumin/Globulin Ratio 0.8 Meds: Medications Generic Name Dose Route Start Last Admin Trade Name Freq PRN Reason Stop Dose Admin Sodium Chloride 1,000 mls @ 500 mls/hr 12/31/18 21:45 12/31/18 22:19 Normal Saline IV 500 mls/hr ASDIRECTED KOSTA Administration Sodium Chloride 10 ml 12/31/18 21:42 12/31/18 22:59 Saline Flush FLUSH 10 ml ASDIRECTED PRN Administration Keep Vein Open Discontinued Medications Generic Name Dose Route Start Last Admin Trade Name Freq PRN Reason Stop Dose Admin Ondansetron HCl 8 mg 12/31/18 21:42 12/31/18 22:59 Zofran IVPUSH 12/31/18 21:43 8 mg ONETIME ONE Administration Departure - Departure Time of Disposition: 23:32 Disposition: Home, Self-Care 01 Condition: Good Clinical Impression: Vomiting - Discharge Information Referrals: Cherie Maurice NP [Primary Care Provider] - - Problem List & Annotations (1) Luis A pearl SNOMED Code(s): 85647769 Code(s): R11.10 - VOMITING, UNSPECIFIED Status: Acute Current Visit: Yes - Problem List Review Problem List Initiated/Reviewed/Updated: Yes - My Orders Last 24 Hours: My Active Orders 12/31/18 21:42 EKG Documentation Completion [RC] ASDIRECTED Chest 1V Frontal [CR] Stat Sodium Chloride 0.9% [Saline Flush] 10 ml FLUSH ASDIRECTED PRN Peripheral IV Insertion Adult [OM.PC] Routine EKG 12 Lead [EK] Routine 12/31/18 21:45 Sodium Chloride 0.9% [Normal Saline] 1,000 ml IV ASDIRECTED - Assessment/Plan Last 24 Hours: My Active Orders 12/31/18 21:42 EKG Documentation Completion [RC] ASDIRECTED Chest 1V Frontal [CR] Stat Sodium Chloride 0.9% [Saline Flush] 10 ml FLUSH ASDIRECTED PRN Peripheral IV Insertion Adult [OM.PC] Routine EKG 12 Lead [EK] Routine 12/31/18 21:45 Sodium Chloride 0.9% [Normal Saline] 1,000 ml IV ASDIRECTED Plan: I gave her 0.5 L of NS. 8 mg of IV Zofran. Labs looked great,I reviewed CXR-no acute findings. I discharged her home with Zofran ODT. See PCP on Wednesday
[2019-01-01 03:48] VITALS: BP 124/97
--- NOTE | 2019-01-02 12:57 | CR ---
INDICATION: Cough and wheezing. CHEST: An AP portable upright view of the chest was obtained on 12/31/18 and compared with 12/12/18 and 06/08/18, again revealing evidence of exogenous obesity. The heart appears enlarged somewhat. The aorta is somewhat tortuous with minimal calcification suggested in the arch. A definite consolidating pneumonia or effusion was not identified. However, with the overlying breast tissue and question of some increased density in the lung bases, it is difficult to exclude minimal patchy bronchopneumonia. It is also difficult to exclude a mild degree of CHF with slight prominence of upper lung field pulmonary vasculature. MTDD
== END 2018-12-31 23:55 | disposition home or self-care (01) ==
LOC: FB.ED 21:08
DX: R11.10 Vomiting, unspecified (principal); F41.9 Anxiety disorder, unspecified; F32.9 Major depressive disorder, single episode, unspecified; Z88.7 Allergy status to serum and vaccine; Z79.899 Other long term (current) drug therapy
CPT/HCPCS: 36415; 71045; 80053; 84484; 85025; 93005; 96361; 96374; 99284; J2405; J7030; A9270-GY

== ENCOUNTER 2019-01-14 13:34 | Emergency (ER) | payer MEDICARE, MEDICAID ==
[2019-01-14] MEDS ORDERED: Pantoprazole 40 MG Vial IVPUSH ONE (14:08)
[2019-01-14] MEDS ORDERED: Ondansetron 4 MG/2 ML SDV IVPUSH ONE (14:09)
[2019-01-14] MEDS ORDERED: Sodium Chloride 0.9% 1,000 ML IV SCH (14:15)
--- NOTE | 2019-01-14 14:36 | EDM.PDOC ---
ED HPI GENERAL MEDICAL PROBLEM - General Chief Complaint: Gastrointestinal Problem Stated Complaint: VOMITING LONNIE Time Seen by Provider: 01/14/19 14:20 Source of Information: Reports: Patient, Old Records History Limitations: Reports: No Limitations - History of Present Illness INITIAL COMMENTS - FREE TEXT/NARRATIVE: Fior returns to PSYCHIATRIC ED with ongoing sxs of nausea, vomiting, and eructation. She has similar sxs, see ED notes from 12/31/18. There is no reported hemetemesis, food intolerance, or known wt loss. There is no samuel abdominal pain. She has had some diarrhea. She is unaware of any blood in the stool, although SO reports some visible BRB and dark stools. A scheduled colonoscopy last week was cancelled by patient. Treatments CLOTH CALENDER: Reports: IV/IO - Related Data Allergies Allergy/AdvReac Type Severity Reaction Status Date / Time tetanus and diphtheria Allergy Hives Verified 01/14/19 14:16 toxoids [tetanus & diphtheria toxoids] Home Meds: Home Meds Potassium Chloride [Klor-Con M20] 10 meq PO BID 05/04/15 [History] levETIRAcetam [Keppra] 1,000 mg PO BID 05/04/15 [History] rOPINIRole [Requip] 2 mg PO BEDTIME 05/04/15 [History] FLUoxetine [PROzac] 60 mg PO DAILY 05/30/15 [History] Gabapentin [Neurontin] 400 mg PO BID 08/30/17 [History] Lisinopril 5 mg PO DAILY 08/30/17 [History] Mirtazapine 30 mg PO BEDTIME 08/30/17 [History] Multivitamin [Multivitamins] 1 each PO DAILY 08/30/17 [History] Albuterol [Ventolin HFA] 2 inhalation INH Q4H PRN 06/08/18 [History] Propranolol [Inderal LA] 80 mg PO DAILY 06/08/18 [History] Rosuvastatin [Crestor] 20 mg PO DAILY 06/08/18 [History] Ticagrelor [Brilinta] 90 mg PO BID 06/08/18 [History] busPIRone [Buspar] 15 mg PO BID 06/08/18 [History] Acetaminophen [Tylenol] 650 mg PO Q4H PRN 06/09/18 [History] Allopurinol [Zyloprim] 300 mg PO DAILY 06/09/18 [History] Furosemide [Lasix] 40 mg PO DAILY 06/09/18 [History] Methylcellulose (with Sugar) [Citrucel] 1 tbsp PO DAILY PRN 06/09/18 [History] Nitroglycerin [Nitrostat] 0.4 mg SL ASDIRECTED PRN 06/09/18 [History] Pantoprazole Sodium [Protonix] 40 mg PO DAILY@0600 06/09/18 [History] Sennosides/Docusate Sodium [Senna Plus Tablet] 1 tab PO DAILY PRN 06/09/18 [ History] Budesonide/Formoterol Fumarate [Symbicort 80-4.5 Mcg Inhaler] 2 inh INH BID [History] Albuterol/Ipratropium [DuoNeb 3.0-0.5 MG/3 ML] 1 inh QID 01/14/19 [History] Aspirin [Ecotrin] 325 mg PO DAILY 01/14/19 [History] Ondansetron [Zofran ODT] 4 mg PO Q6H PRN #20 tab.dis 01/14/19 [Rx] Sucralfate [Carafate] 1 gm PO QID 01/14/19 [History] Past Medical History HEENT History: Reports: None Cardiovascular History: Reports: Aneurysm, CAD, Heart Failure, Hypertension, VA , SOB on Exertion, Other (See Below) Other Cardiovascular History: has had many strokes, L sided weakness (arm) Respiratory History: Reports: COPD, Pneumonia, Recurrent, SOB Gastrointestinal History: Reports: Chronic Constipation, GERD, Hemorrhoids Genitourinary History: Reports: None, UTI, Recurrent FABRIC CUTTER History: Reports: , Other (See Below) Other FABRIC CUTTER History: Musculoskeletal History: Reports: Arthritis, Fracture, Gout Other Musculoskeletal History: hx fx R foot Neurological History: Reports: CVA, Seizure, Other (See Below) Other Neuro History: has had numerous cva's in pasr, L sided weakness arm and leg Psychiatric History: Reports: Anxiety, Depression, Eating Disorders, Emotional Problems, Panic Attack Endocrine/Metabolic History: Reports: Obesity/BMI 30+ Hematologic History: Reports: None Immunologic History: Reports: None Oncologic (Cancer) History: Reports: None Dermatologic History: Reports: None, Other (See Below) Other Dermatologic History: redness both sides of abdominal folds, bilateral groin areas, under left breast - Infectious Disease History Infectious Disease History: Reports: Chicken Pox, Measles, Mumps - Past Surgical History HEENT Surgical History: Reports: Adenoidectomy, Oral Surgery, Tonsillectomy, Other (See Below) Other HEENT Surgeries/Procedures: all of teeth pulled Cardiovascular Surgical History: Reports: Percutaneous Transluminal Angioplasty Respiratory Surgical History: Reports: None GI Surgical History: Reports: EGD Female Surgical History: Reports: None Endocrine Surgical History: Reports: None Neurological Surgical History: Reports: None Musculoskeletal Surgical History: Reports: Other (See Below) Other Musculoskeletal Surgeries/Procedures:: very weak, has right ankle fx with ORIF and 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 Oncologic Surgical History: Reports: None Dermatological Surgical History: Reports: None Social & Family History - Family History Family Medical History: Noncontributory - Tobacco Use Smoking Status *Q: Former Smoker Years of Tobacco use: 20 Used Tobacco, but Quit: Yes Month/Year Tobacco Last Used: oct - Caffeine Use Caffeine Use: Reports: Soda Other Caffeine Use: Xtalic dew - Recreational Drug Use Recreational Drug Use: No - Living Situation & Occupation Living situation: Reports: Single Occupation: Unemployed ED ROS GENERAL - Review of Systems Review Of Systems: See Below Constitutional: Reports: Malaise, Weakness HEENT: Reports: No Symptoms Respiratory: Reports: Wheezing Cardiovascular: Reports: Dyspnea on Exertion, Edema Endocrine: Reports: Fatigue GI/Abdominal: Reports: Black Stool, Diarrhea, Nausea, Vomiting : Reports: No Symptoms Musculoskeletal: Reports: No Symptoms Skin: Reports: No Symptoms Neurological: Reports: Pre-Existing Deficit, Difficulty Walking, Weakness Psychiatric: Reports: Anxiety Hematologic/Lymphatic: Reports: No Symptoms Immunologic: Reports: No Symptoms ED EXAM, GI/ABD - Physical Exam Exam: See Below Exam Limited By: No Limitations General Appearance: Alert, WD/WN, No Apparent Distress, Anxious, Obese Eyes: Bilateral: Normal Appearance, EOMI Ears: Normal External Exam Nose: Normal Inspection Throat/Mouth: Normal Inspection, Normal Oropharynx Neck: Normal Inspection, Supple, Non-Tender Respiratory/Chest: No Respiratory Distress, No Accessory Muscle Use, Decreased Breath Sounds, Crackles, Wheezing, Prolonged Expiration Cardiovascular: Regular Rate, Rhythm, No Murmur GI/Abdominal Exam: Normal Bowel Sounds, Soft, Non-Tender, No Organomegaly, No Distention, No Mass (Female) Exam: Deferred Rectal (Female) Exam: Deferred Back Exam: Normal Inspection Extremities: Pedal Edema, Other (generalized weakness L>R LE) Neurological: Alert, Oriented, CN II-XII Intact, Normal Cognition, No Motor/ Sensory Deficits Psychiatric: Normal Affect, Anxious Skin Exam: Warm, Dry, Intact, Normal Color Lymphatic: No Adenopathy Course - Vital Signs Text/Narrative:: Following assessment at the PSYCHIATRIC ED, Fior was administered Protonix 40 mg IV and Zofran 8 mg IV pending results of CBC, BMP, and SFOB: the CBC and BMP are baseline, SFOB neg. Last Recorded V/S: Last Vital Signs Temp 36.5 C 01/14/19 13:34 Pulse 86 01/14/19 13:34 Resp 22 H 01/14/19 13:34 BP 158/91 H 01/14/19 13:34 Pulse Ox 95 01/14/19 13:34 - Orders/Labs/Meds Orders: Active Orders 24 hr Category Date Time Status Sodium Chloride 0.9% [Normal Saline] 1,000 ml Med 01/14/19 14:15 Active IV ASDIRECTED Medication Orders Sodium Chloride (Normal Saline) 1,000 mls @ 500 mls/hr IV ASDIRECTED KOSTA Last Admin: 01/14/19 14:32 Dose: 500 mls/hr Labs: Laboratory Tests 01/14/19 01/14/19 Range/Units 13:42 13:42 WBC 9.7 (4.5-12.0) X10-3/uL RBC 4.39 (3.23-5.20) x10(6)uL Hgb 12.8 (11.5-15.5) g/dL Hct 39.9 (30.0-51.3) % MCV 91.0 (80-96) fL MCH 29.1 (27.7-33.6) pg MCHC 32.0 L (32.2-35.4) g/dL RDW 15.5 (11.5-15.5) % Plt Count 178 (125-369) X10(3)uL MPV 10.8 H (7.4-10.4) fL Add Manual Diff Yes Neutrophils % (Manual) 82 (46-82) % Lymphocytes % (Manual) 12 L (13-37) % Monocytes % (Manual) 4 (4-12) % Eosinophils % (Manual) 1 (0-5) % Basophils % (Manual) 1 (0-2) % Sodium 142 (135-145) mmol/L Potassium 3.9 (3.5-5.3) mmol/L Chloride 104 (100-110) mmol/L Carbon Dioxide 27 (21-32) mmol/L BUN 16 (7-18) mg/dL Creatinine 1.3 H (0.55-1.02) mg/dL Est Cr Clr Drug Dosing 44.68 mL/min Estimated GFR (MDRD) 41 L (>60) BUN/Creatinine Ratio 12.3 (9-20) Glucose 124 H (80-116) mg/dL Calcium 9.4 (8.6-10.2) mg/dL Meds: Medications Generic Name Dose Route Start Last Admin Trade Name Freq PRN Reason Stop Dose Admin Sodium Chloride 1,000 mls @ 500 mls/hr 01/14/19 14:15 01/14/19 14:32 Normal Saline IV 500 mls/hr ASDIRECTED KOSTA Administration Discontinued Medications Generic Name Dose Route Start Last Admin Trade Name Freq PRN Reason Stop Dose Admin Ondansetron HCl 8 mg 01/14/19 14:09 01/14/19 14:32 Zofran IVPUSH 01/14/19 14:10 8 mg ONETIME ONE Administration Pantoprazole Sodium 40 mg 01/14/19 14:08 01/14/19 14:40 Protonix Iv IVPUSH 01/14/19 14:09 40 mg ONETIME ONE Administration Departure - Departure Time of Disposition: 15:23 Disposition: Home, Self-Care 01 Condition: Fair Clinical Impression: Gastro-esophageal reflux Qualifiers: Esophagitis presence: esophagitis presence not specified Qualified Code(s): K21.9 - Gastro-esophageal reflux disease without esophagitis - Discharge Information *PRESCRIPTION DRUG MONITORING PROGRAM REVIEWED*: Not Applicable *COPY OF PRESCRIPTION DRUG MONITORING REPORT IN PATIENT JORJE: Not Applicable Forms: ED Department Discharge - Problem List & Annotations (1) Gastro-esophageal reflux SNOMED Code(s): 920379669 Code(s): K21.9 - GASTRO-ESOPHAGEAL REFLUX DISEASE WITHOUT ESOPHAGITIS Status: Chronic Current Visit: Yes Annotation/Comment:: Continue PPI. Qualifiers: Esophagitis presence: esophagitis presence not specified Qualified Code(s) : K21.9 - Gastro-esophageal reflux disease without esophagitis - Problem List Review Problem List Initiated/Reviewed/Updated: Yes - My Orders Last 24 Hours: My Active Orders 01/14/19 14:15 Sodium Chloride 0.9% [Normal Saline] 1,000 ml IV ASDIRECTED - Assessment/Plan Last 24 Hours: My Active Orders 01/14/19 14:15 Sodium Chloride 0.9% [Normal Saline] 1,000 ml IV ASDIRECTED Plan: Follow up with PCP, and consider EGD and reschedule colonoscopy. I dispensed Zofran 4 mg ODT for recurrent sxs of nausea if needed.
[2019-01-14 16:06] VITALS: BP 154/93
== END 2019-01-14 15:39 | disposition home or self-care (01) ==
LOC: FB.ED 13:34
DX: K21.9 Gastro-esophageal reflux disease without esophagitis (principal); I25.10 Atherosclerotic heart disease of native coronary artery without angina pectoris; I50.9 Heart failure, unspecified; I11.0 Hypertensive heart disease with heart failure; I25.2 Old myocardial infarction; J44.9 Chronic obstructive pulmonary disease, unspecified; F41.9 Anxiety disorder, unspecified; F32.9 Major depressive disorder, single episode, unspecified; Z79.82 Long term (current) use of aspirin; Z88.1 Allergy status to other antibiotic agents; Z79.899 Other long term (current) drug therapy; Z87.891 Personal history of nicotine dependence
CPT/HCPCS: 36415; 80048; 82272; 85025; 96361; 96374; 96375; 99284; C9113; J2405; J7030